=== PATIENT | male | born 1930 | race American Indian/Alaskan Native ===

== ENCOUNTER 2017-01-06 15:28 | Inpatient (IN) | payer MEDICARE, OTHER ==
--- NOTE | 2017-01-06 17:00 | C.PDOC ---
History Of Present Illness 86 year old male presents to the ED from his [facility] accompanied by his son with complaints of SOB and increasing generalized edema. As per son, patient was admitted to [facility] 2 and 1/2 weeks ago for a GI bleed and became more swollen. He notes the swelling improved a bit at the [facility] however the SOB worsened. Denies fever, vomiting, diarrhea, chest pain, or any other complaints at this time. Time Seen by Provider: 01/06/17 15:53 Chief Complaint (Nursing): Shortness Of Breath History Per: Patient, Family (Son) History/Exam Limitations: no limitations Onset/Duration Of Symptoms: Days Current Symptoms Are (Timing): Still Present Severity: Mild Associated Symptoms: denies: Fever, Chills, Chest Pain Past Medical History Reviewed: Historical Data, Nursing Documentation, Vital Signs Vital Signs: Last Vital Signs Temp 97.4 F L 01/07/17 09:08 Pulse 83 01/07/17 09:08 Resp 20 01/07/17 09:08 BP 100/59 L 01/07/17 09:23 Pulse Ox 100 01/07/17 00:00 - Medical History PMH: Anemia, Cardia Arrhythmia - [facility] Procedures COLONOSCOPY (11/04/00) DX ULTRASOUND NEC (04/19/99) ENDOSC POLYPECTOMY OF LG INTEST (11/02/98) ESOPHAGOGASTRODUODENOSCOPY [EGD] W/CLOSED BIOPSY (11/02/98) INJECT/INFUSE NEC (09/17/06) OTHER SPEECH THERAPY (05/08/03) PHYSICAL THERAPY NEC (05/08/03) RADIOACTIVE [place] IMPLANT (04/19/99) Family History: States: Unknown Family Hx - Social History Hx Alcohol Use: No Hx Substance Use: No - Immunization History Hx Influenza Vaccination: Yes Hx Pneumococcal Vaccination: Yes Review Of Systems Except As Marked, All Systems Reviewed And Found Negative. Constitutional: Positive for: Other (+Generalized edema). Negative for: Fever, Chills Cardiovascular: Negative for: Chest Pain, Palpitations Respiratory: Positive for: Shortness of Breath. Negative for: Cough Gastrointestinal: Negative for: Vomiting, Abdominal Pain Neurological: Negative for: Weakness, Numbness Physical Exam - Physical Exam Appears: Non-toxic, No Acute Distress Skin: Normal Color, Warm, Dry Head: Atraumatic, Normacephalic Eye(s): bilateral: Normal Inspection Oral Mucosa: Moist Neck: Supple Chest: Symmetrical, No Deformity Cardiovascular: Rhythm Regular, No Murmur Respiratory: Decreased Breath Sounds, No Accessory Muscle Use, Rales (+Rales mostly to the bases), No Rhonchi Gastrointestinal/Abdominal: Soft, No Tenderness, No Guarding, No Rebound, Other (+Edema) Extremity: Normal ROM, Pedal Edema (3+ pedal edema), No Deformity Neurological/Psych: Oriented x3, Normal Speech, Normal Cognition ED Course And Treatment - Laboratory Results Result Diagrams: 01/07/17 07:45 01/07/17 06:10 ECG: Interpreted By Me, Viewed By Me ECG Rhythm: Atrial Fibrillation, R BBB Rate From EC O2 Sat by Pulse Oximetry: 100 Pulse Ox Interpretation: Normal - Radiology CXR: Interpreted by Me, Viewed By Me CXR Interpretation: Yes: Cardiomegaly, Other (+Right sided pleural effusion) Progress Note: CXR, EKG, Blood work, and Urinalysis ordered and reviewed. patient treated with Lasix. Case discussed with Dr. Lucas who agreed with plan and admission. Medical Decision Making Medical Decision Making: Pt stable in the ED BP ~ 100 which is apparently his usual He continue warm and dry with usual mentation Pt had difficult vasc assess with hx of multiple neck lines. Some blood obtained and IV lasix given Pt declines any blood or blood products. We also discussed DNR/DNI status both pt and son confirmed the pt wishes, DNR/ DNI order placed Case discussed with Dr Lucas, plan admission Disposition - Disposition Disposition: HOSPITALIZED Disposition Time: 16:00 Condition: SERIOUS - Clinical Impression Clinical Impression: Congestive heart failure, NYHA class 4, Generalized edema, Dyspnea on exertion - Scribe Statement The provider has reviewed the documentation as recorded by the Scribe Ramos Monge. Provider Attestation: All medical record entries made by the Scribe were at my direction and personally dictated by me. I have reviewed the chart and agree that the record accurately reflects my personal performance of the history, physical exam, medical decision making, and the department course for this patient. I have also personally directed, reviewed, and agree with the discharge instructions and disposition.
[2017-01-06 17:42] LABS: CHLORIDE 103 mmol/L (98-107); POTASSIUM 4.6 mmol/L (3.6-5.2); SODIUM 136 mmol/L (132-148)
[2017-01-06 17:44] LABS: GFR AFRICAN-AMERICAN > 60
[2017-01-06 17:45] LABS: ALB/GLOB RATIO 0.4 (1.0-2.1); ALKALINE PHOSPHATASE 363 U/L (38-126); ALT/SGPT 53 U/L (21-72); AST/SGOT 67 U/L (17-59); BILIRUBIN,TOTAL 0.4 mg/dL (0.2-1.3); BLOOD UREA NITROGEN 24 mg/dL (9-20); CARBON DIOXIDE 27 mmol/L (22-30); GLUCOSE,RANDOM 113 mg/dL (75-110); TOTAL PROTEIN 6.9 g/dL (6.3-8.3)
[2017-01-06 17:46] LABS: CALCIUM 7.3 mg/dl (8.6-10.4)
[2017-01-06 17:50] LABS: RBC URINE 2 /hpf (0-3); URINE BACTERIA OCC (<OCC); URINE BILIRUBIN NEGATIVE (NEGATIVE); URINE BLOOD NEGATIVE (NEGATIVE); URINE COLOR Yellow (YELLOW); URINE GLUCOSE (UA) NORMAL (Normal); URINE KETONE NEGATIVE (NEGATIVE); URINE LEUKOCYTE ESTERASE TRACE Leu/uL (Negative); URINE PROTEIN NEGATIVE (NEGATIVE); URINE URIC ACID CRYSTALS OCC /hpf (<OCC); URINE UROBILINOGEN NORMAL mg/dL (0.2-1.0); WBC URINE 5 /hpf (0-5)
[2017-01-06 19:08] LABS: BASO % 0.7 % (0.0-2.0); EOS % 0.4 % (0.0-4.0); HEMATOCRIT 23.5 % (35.0-51.0); LYMPH # 0.4 K/uL (1.0-4.3); LYMPH % 15.5 % (20.0-40.0); MEAN CELL VOLUME 102.1 fL (80.0-94.0); MEAN CORPUSCULAR HEMOGLOBIN 31.2 pg (27.0-31.0); MEAN CORPUSCULAR HGB CONC 30.6 g/dL (33.0-37.0); MONO # 0.4 K/uL (0.0-0.8); MONO % 16.6 % (0.0-10.0); RED CELL DISTRIBUTION WIDTH 17.3 % (11.5-14.5); WHITE BLOOD COUNT 2.5 K/uL (4.8-10.8)
[2017-01-06] MEDS ORDERED: Magnesium Hydroxide Susp 30 ml UD PO PRN (23:27)
[2017-01-06] MEDS ORDERED: Albuterol-Ipratrop 3 mg / 0.5 (3 ml) UD IH PRN (23:27)
[2017-01-06] MEDS ORDERED: EPOETIN ALFA 10,000 UNIT/ML ML SC ONE (23:45)
[2017-01-07 07:39] LABS: FOLATE > 20.0 ng/mL
[2017-01-07 07:50] LABS: BASO % 0.8 % (0.0-2.0); EOS % 0.8 % (0.0-4.0); HEMATOCRIT 19.6 % (35.0-51.0); LYMPH # 0.3 K/uL (1.0-4.3); LYMPH % 15.7 % (20.0-40.0); MEAN CELL VOLUME 103.6 fL (80.0-94.0); MEAN CORPUSCULAR HEMOGLOBIN 32.4 pg (27.0-31.0); MEAN CORPUSCULAR HGB CONC 31.3 g/dL (33.0-37.0); MEAN PLATELET VOLUME 9.5 fL (7.2-11.7); MONO # 0.3 K/uL (0.0-0.8); MONO % 15.6 % (0.0-10.0); NRBC % 0.1 % (0.0-2.0); RED CELL DISTRIBUTION WIDTH 17.1 % (11.5-14.5); RETIC% 1.6 % (0.5-1.5); WHITE BLOOD COUNT 2.2 K/uL (4.8-10.8)
[2017-01-07] MEDS ORDERED: Epoetin Alfa Dialysis 40000 UNIT/ml Inj SC SCH (08:30)
--- NOTE | 2017-01-07 08:46 | RAD ---
PROCEDURE: CHEST RADIOGRAPH, 1 VIEW HISTORY: Shortness of breath COMPARISON: None available. FINDINGS: LUNGS: Moderate to large right and small to moderate left pleural effusion. Prominent confluent airspace opacifications throughout the right mid to lower lung zone as well as the left lower lung zone. Scattered confluent airspace opacities throughout both lungs. Upper lobe granulomatous changes. PLEURA: As above. CARDIOVASCULAR: Cardiomegaly. OSSEOUS STRUCTURES: Degenerative changes in the spine and shoulders. VISUALIZED UPPER ABDOMEN: Normal. OTHER FINDINGS: None. IMPRESSION: Moderate to large right and small to moderate left pleural effusion. Prominent confluent airspace opacifications throughout the right mid to lower lung zone as well as the left lower lung zone. Scattered confluent airspace opacities throughout both lungs. Upper lobe granulomatous changes. Cardiomegaly.
[2017-01-07] MEDS: Ferric Sodium Gluconat Complex 62.5 mg/5 ml Vial IVPB SCH (09:23)
[2017-01-07] MEDS: Pyridoxine 100 mg Tab PO SCH (09:41)
[2017-01-07] MEDS ORDERED: Pantoprazole 40 mg EC Tab PO SCH (10:00)
[2017-01-07] MEDS ORDERED: Albumin Human 25% (12.5 gm/50 ml) IV SCH (10:00)
[2017-01-07 10:17] LABS: CHLORIDE 106 mmol/L (98-107); SODIUM 138 mmol/L (132-148)
[2017-01-07 10:19] LABS: BILIRUBIN,TOTAL 0.3 mg/dL (0.2-1.3); GFR AFRICAN-AMERICAN > 60
[2017-01-07 10:20] LABS: ALB/GLOB RATIO 0.4 (1.0-2.1); ALKALINE PHOSPHATASE 163 U/L (38-126); ALT/SGPT 36 U/L (21-72); AST/SGOT 46 U/L (17-59); BLOOD UREA NITROGEN 24 mg/dL (9-20); CARBON DIOXIDE 27 mmol/L (22-30); GLUCOSE,RANDOM 103 mg/dL (75-110); TOTAL PROTEIN 4.1 g/dL (6.3-8.3)
[2017-01-07 10:21] LABS: CALCIUM 6.7 mg/dl (8.6-10.4); POTASSIUM 4.5 mmol/L (3.6-5.2)
--- NOTE | 2017-01-07 10:27 | CP.PCM.PN ---
Subjective - Date & Time of Evaluation Date of Evaluation: 01/07/17 Time of Evaluation: 07:20 - Subjective Subjective: PGY2 Medicine Note - Dr. Lucas's service: Patient seen and examined at bedside this AM. Patient is an 86 year old Jehovah 's witness male with PMHx of anemia presenting from care home for SOB and generalized edema. Patient was at [facility] 2.5 weeks ago for GI bleed. Patient says edema improved while at care home, but SOB worsened. Patient says he is breathing better today. Patient refuses blood transfusion for muslim reasons. Objective - Vital Signs/Intake and Output Vital Signs (last 24 hours): Temp Pulse Resp BP Pulse Ox 97.4 F L 83 20 100/59 L 100 01/07/17 09:08 01/07/17 09:08 01/07/17 09:08 01/07/17 09:23 01/07/17 00:00 Intake and Output: 01/07/17 01/07/17 06:59 18:59 Intake Total 150 Output Total 700 Balance -550 - Medications Medications: Current Medications Acetaminophen (Tylenol 325mg Tab) 650 mg PO Q4H PRN PRN Reason: Pain, Mild (1-3) Albuterol/Ipratropium (Duoneb 3 Mg/0.5 Mg (3 Ml) Ud) 3 ml IH RQ6 PRN PRN Reason: Shortness of Breath Epoetin Leland (Procrit) 40,000 unit SC MOTH ALEXIA Ferric Sodium Gluconate Complex (Ferrlecit) 125 mg IVPB DAILY [facility] Stop: 01/15/17 10:01 Last Admin: 01/07/17 09:23 Dose: 125 mg Folic Acid (Folic Acid) 2 mg PO DAILY [facility] Last Admin: 01/07/17 09:23 Dose: 2 mg Furosemide (Lasix) 20 mg IVP BID [facility] Last Admin: 01/07/17 09:23 Dose: 20 mg Albumin Human (Albumin Human 25% (12.5 Gm/50 Ml)) 50 mls @ 50 mls/hr IV ONCE ONE Stop: 01/07/17 10:59 Lactulose (Enulose) 20 gm PO DAILY PRN PRN Reason: Constipation Magnesium Hydroxide (Milk Of Magnesia) 30 ml PO DAILY PRN PRN Reason: Constipation Pantoprazole Sodium (Protonix Ec Tab) 40 mg PO DAILY [facility] Last Admin: 01/07/17 09:23 Dose: 40 mg Pyridoxine HCl (Vitamin B6) 100 mg PO DAILY [facility] Last Admin: 01/07/17 09:41 Dose: 100 mg - Labs Labs: 01/07/17 07:45 - Constitutional Appears: Non-toxic, No Acute Distress, Chronically Ill - Head Exam Head Exam: NORMAL INSPECTION - Eye Exam Eye Exam: EOMI - ENT Exam ENT Exam: Mucous Membranes Moist - Respiratory Exam Respiratory Exam: Rales (b/l), NORMAL BREATHING PATTERN. absent: Accessory Muscle Use, Respiratory Distress - Cardiovascular Exam Cardiovascular Exam: REGULAR RHYTHM, JVD, +S1, +S2. absent: Rubs, Murmur - GI/Abdominal Exam GI & Abdominal Exam: Soft, Normal Bowel Sounds. absent: Distended, Firm, Tenderness - Extremities Exam Extremities Exam: Pedal Edema (2+ b/l legs, 2+ left arm) - Neurological Exam Neurological Exam: Alert, Oriented x3 - Psychiatric Exam Psychiatric exam: Normal Affect, Normal Mood - Skin Skin Exam: Pallor, Warm Assessment and Plan - Assessment and Plan (Free Text) Assessment: Pancytopenia Macrocytic anemia Hgb 6.1, WBC 2.2, Platelets 92 MCV 103.6 Patient refusing blood products for muslim reasons Heme/Onc consult - Dr. Marti - help appreciated B12 >1000, Folate >20 F/U ferritin, immunofixation, kappa/lambda, protein electrophoresis GI consult - Dr. Garcia - f/u recommendations Stool occult blood negative x1 F/U repeat stool occult blood Pleural Effusions CXR 01/06/17- large right pleural effusion, small left pleural effusion with scattered opacities Albumin IVPB daily x3 days Lasix 20mg IVP BID F/U ECHO Pulmonology consult - Dr. Amador - f/u recommendations Pneumonia CXR - see above Afebrile, WBC 2.2 with neutrophil count of 1.5 Avelox 400mg IVPB daily started 01/07/17 Atrial fibrillation EKG 01/06/17 - rate controlled AFib Cardio consult - Dr. Lerner - help appreciated No anticoagulation for now as Hgb and platelets are low F/U ECHO Transaminitis AST 67, ALT 53, ALP 363 F/U GGT GI consult - Dr. Garcia - f/u recommendations Prophylaxis Pepcid 20mg PO daily Stockings
--- NOTE | 2017-01-07 10:46 | CARD ---
APPROVED REPORT EKG Measurement Heart [id number] <Conclusion> Atrial fibrillation Right bundle branch block Abnormal ECG
[2017-01-07] MEDS: Moxifloxacin IV 400mg/250ml NS 250 ML IVPB SCH (11:40)
--- NOTE | 2017-01-07 12:46 | CP.PCM.CON ---
<Catalina Parson - Last Filed: 01/07/17 16:12> History of Present Illness - History of Present Illness History of Present Illness: Gastroenterology Fellow/PGY4 Consult Note 86 year old male with history of CHF, pulmonary hypertension, Afib previously on Coumadin since , recent admission to [facility] on 12/09 for hemorrhagic shock with coffee-ground emesis, treated with iron supplementation, Epogen, and Venofer due to refusal of blood transfusion as a [employer]ian worship beliefs. History obtained from patient with limited insight but oriented to person/place/time, son, and [facility] nursing facility staff. Transferred to [facility] on 12/17 with noted inpatient chart review showing H/H on 12/29 of 6. and MCV 108. Discharge note on file at [facility] shows no blood transfusion and iron replacements provided with discharge after two day stay. There is question of a diagnosed cecal mass that patient and son do not confirm being aware of in history. As well, patient reports undergoing EGD and colonoscopy and son reports EGD performed showing ulcer with bleeding leading to Coumadin being stopped on discharge. Nursing facility reports plan was to provide the patient with Epogen 20,000units yesterday but patient refused and requested hospital admission. At present, patient admits to weakness, shortness of breath with movement. Denies abdominal pain, distension, melena, hematochezia, hematemesis, chest pain, nausea, vomiting, or diarrhea. Admits to chronic diffuse body swelling with history of CHF. At present, attempting bowel movement with yellow-brown soft stool noted. On record review prior colonoscopy 10/2000 with likely polypectomy, endorsed by patient to be normal. Family-denies colon cancer, stomach cancer, paternal aunt unknown cancer, Diabetes throught family Social-quit tobacco and alcohol use "many years ago", unable to quantify, denies illicit drug use Surgery-hernia repair Review of Systems - Review of Systems Review of Systems: A 12-point review of systems negative except for as above Past Patient History - Infectious Disease Hx of Infectious Diseases: None - Past Medical History & Family History Past Medical History?: Yes - Past Social History Smoking Status: Former Smoker - CARDIAC Hx Cardiac Disorders: Yes Hx Atrial Fibrillation: Yes Hx Cardia Arrhythmia: Yes Hx Congestive Heart Failure: Yes Hx Hypertension: Yes Hx Peripheral Edema: Yes - PULMONARY Hx Respiratory Disorders: Yes Other/Comment: PULMONARY HYPERTENSION - NEUROLOGICAL Hx Neurological Disorder: Yes HX Cerebrovascular Accident: Yes - HEENT Hx HEENT Problems: Yes Hx Deafness: Yes (hearing aid) - RENAL Hx Chronic Kidney Disease: No - ENDOCRINE/METABOLIC Hx Diabetes Mellitus Type 2: Yes - HEMATOLOGICAL/ONCOLOGICAL Hx Blood Disorders: Yes Hx Anemia: Yes - MUSCULOSKELETAL/RHEUMATOLOGICAL Hx Musculoskeletal Disorders: Yes Hx Falls: No Hx Unsteady Gait: Yes - GASTROINTESTINAL Hx Gastrointestinal Disorders: Yes Other/Comment: GI BLEED - GENITOURINARY/GYNECOLOGICAL Hx Genitourinary Disorders: Yes Hx Incontinence: Yes - PSYCHIATRIC Hx Psychophysiologic Disorder: No Hx Substance Use: No - SURGICAL HISTORY Hx Surgeries: Yes Hx Herniorrhaphy: Yes (left) - ANESTHESIA Hx Anesthesia: Yes Hx Anesthesia Reactions: No Hx Malignant Hyperthermia: No Has any member of the family had a problem w/ anesthesia?: No Meds Allergies/Adverse Reactions: Allergies Allergy/AdvReac Type Severity Reaction Status Date / Time No Known Allergies Allergy Verified 01/06/17 16:09 - Medications Medications: Current Medications Acetaminophen (Tylenol 325mg Tab) 650 mg PO Q4H PRN PRN Reason: Pain, Mild (1-3) Albuterol/Ipratropium (Duoneb 3 Mg/0.5 Mg (3 Ml) Ud) 3 ml IH RQ6 PRN PRN Reason: Shortness of Breath Famotidine (Pepcid) 20 mg PO DAILY [facility] Ferric Sodium Gluconate Complex (Ferrlecit) 125 mg IVPB DAILY [facility] Stop: 01/15/17 10:01 Last Admin: 01/07/17 09:23 Dose: 125 mg Folic Acid (Folic Acid) 2 mg PO DAILY [facility] Last Admin: 01/07/17 09:23 Dose: 2 mg Furosemide (Lasix) 20 mg IVP BID [facility] Last Admin: 01/07/17 09:23 Dose: 20 mg Moxifloxacin HCl (Avelox Iv 400mg/250ml Ns) 250 mls @ 167 mls/hr IVPB Q24H [facility] Last Admin: 01/07/17 11:40 Dose: 167 mls/hr Lactulose (Enulose) 20 gm PO DAILY PRN PRN Reason: Constipation Magnesium Hydroxide (Milk Of Magnesia) 30 ml PO DAILY PRN PRN Reason: Constipation Pyridoxine HCl (Vitamin B6) 100 mg PO DAILY [facility] Last Admin: 01/07/17 09:41 Dose: 100 mg Physical Exam - Constitutional Appears: Non-toxic, No Acute Distress, Chronically Ill - Head Exam Head Exam: ATRAUMATIC, NORMOCEPHALIC - Eye Exam Eye Exam: EOMI, Normal appearance, PERRL Pupil Exam: PERRL. absent: Miosis, Mydriatic - ENT Exam ENT Exam: Mucous Membranes Moist, Normal Oropharynx Additional comments: poor dentition - Neck Exam Neck exam: Positive for: Full Rom, Normal Inspection - Respiratory Exam Respiratory Exam: Clear to Auscultation Bilateral. absent: Rales, Rhonchi, Wheezes, Stridor - Cardiovascular Exam Cardiovascular Exam: Irregular Rhythm, JVD, +S1, +S2. absent: Gallop, Rubs - GI/Abdominal Exam GI & Abdominal Exam: Normal Bowel Sounds, Soft, Tenderness. absent: Distended, Firm, Guarding, Organomegaly, Rebound, Rigid - Rectal Exam Rectal Exam: absent: Black Stool, Bloody Stool, Fecal Impaction Additional comments: soft yellow-brown stool - Exam Exam: Scrotal Swelling - Extremities Exam Extremities exam: Positive for: normal inspection Additional comments: 3+ B/L LE pitting edema and chronic lymphedema, B/L UE chronic lymphedema - Neurological Exam Neurological exam: Alert, Oriented x3 - Psychiatric Exam Psychiatric exam: Normal Affect, Normal Mood - Skin Skin Exam: Dry, Intact, Normal Color, Warm Additional comments: sacral pressure ulcer Results - Vital Signs Recent Vital Signs: Last Vital Signs Temp 97.4 F L 01/07/17 09:08 Pulse 83 01/07/17 09:08 Resp 20 01/07/17 09:08 BP 100/59 L 01/07/17 09:23 Pulse Ox 100 01/07/17 00:00 - Labs Result Diagrams: 01/07/17 07:45 01/07/17 06:10 Labs: Laboratory Results - last 24 hr 01/06/17 01/07/17 01/07/17 19:05 01:13 06:10 WBC 2.5 L RBC 2.30 L Hgb 7.2 L Hct 23.5 L MCV 102.1 H MCH 31.2 H MCHC 30.6 L RDW 17.3 H Plt Count 115 L MPV 8.0 Neut % (Auto) 66.8 Lymph % (Auto) 15.5 L Den[place] % (Auto) 16.6 H Eos % (Auto) 0.4 Baso % (Auto) 0.7 Neut # 1.7 L Lymph # 0.4 L Denali # 0.4 Eos # 0.0 Baso # 0.0 Differential Comment Retic Count Sodium 138 Potassium 4.5 Chloride 106 Carbon Dioxide 27 Anion Gap 10 BUN 24 H Creatinine 0.8 Est GFR ( Amer) > 60 Est GFR (Non-Af Amer) > 60 Random Glucose 103 Calcium 6.7 L Ferritin 749.0 Total Bilirubin 0.3 AST 46 ALT 36 Alkaline Phosphatase 163 H D Total Protein 4.1 L Albumin 1.2 L D Globulin 2.8 Albumin/Globulin Ratio 0.4 L Vitamin B12 > 1000 H Folate > 20.0 Stool Occult Blood Negative 01/07/17 07:45 WBC 2.2 L RBC 1.89 L Hgb 6.1 L* Hct 19.6 L MCV 103.6 H MCH 32.4 H MCHC 31.3 L RDW 17.1 H Plt Count 92 L D MPV 9.5 Neut % (Auto) 67.1 Lymph % (Auto) 15.7 L [place] % (Auto) 15.6 H Eos % (Auto) 0.8 Baso % (Auto) 0.8 Neut # 1.5 L Lymph # 0.3 L Denali # 0.3 Eos # 0.0 Baso # 0.0 Differential Comment Retic Count 1.6 H Sodium Potassium Chloride Carbon Dioxide Anion Gap BUN Creatinine Est GFR ( Amer) Est GFR (Non-Af Amer) Random Glucose Calcium Ferritin Total Bilirubin AST ALT Alkaline Phosphatase Total Protein Albumin Globulin Albumin/Globulin Ratio Vitamin B12 Folate Stool Occult Blood Assessment & Plan - Assessment and Plan (Free Text) Assessment: 86 year old male with history of CHF, pulmonary hypertension, Afib previously on Coumadin since , recent admission to [facility] on 12/09 for hemorrhagic shock with coffee-ground emesis, treated with iron supplementation, Epogen, and Venofer due to refusal of blood transfusion as a [employer]ian, transferred to [facility] on 12/17. Presenting with weakness and shortness of breath. Active treatment of symptomatic, acute on chronic anemia treated with medical management. On record review prior colonoscopy 10/2000 with likely polypectomy, endorsed by patient to be normal. Plan: >discussed with patient and son refusal of blood transfusion as [employer]ian -son-Jori Manzano [phone] >monitor H/H >continue PPI >iron transfusion, Procrit >Hematology managing- follow up recommendations >obtain records from [facility] -confirm prior endoscopic evaluation- EGD /colonoscopy and/or CT A/P with recent GI Bleed >consider CT A/P if not recently performed >recent outpatient Duplex LE -negative for DVT 12/30/16 on nursing record review >extensive counselling provided to patient and son with verbalized understanding of acute anemia and risks vs benefit of blood transfusion >patient and family express understanding. No blood transfusions with worship belief being a [employer]ian <Martha Martinez - Last Filed: 01/07/17 17:14> Meds - Medications Medications: Current Medications Acetaminophen (Tylenol 325mg Tab) 650 mg PO Q4H PRN PRN Reason: Pain, Mild (1-3) Albuterol/Ipratropium (Duoneb 3 Mg/0.5 Mg (3 Ml) Ud) 3 ml IH RQ6 PRN PRN Reason: Shortness of Breath Famotidine (Pepcid) 20 mg PO DAILY [facility] Ferric Sodium Gluconate Complex (Ferrlecit) 125 mg IVPB DAILY [facility] Stop: 01/15/17 10:01 Last Admin: 01/07/17 09:23 Dose: 125 mg Folic Acid (Folic Acid) 2 mg PO DAILY [facility] Last Admin: 01/07/17 09:23 Dose: 2 mg Furosemide (Lasix) 20 mg IVP BID [facility] Last Admin: 01/07/17 09:23 Dose: 20 mg Moxifloxacin HCl (Avelox Iv 400mg/250ml Ns) 250 mls @ 167 mls/hr IVPB Q24H [facility] Last Admin: 01/07/17 11:40 Dose: 167 mls/hr Lactulose (Enulose) 20 gm PO DAILY PRN PRN Reason: Constipation Magnesium Hydroxide (Milk Of Magnesia) 30 ml PO DAILY PRN PRN Reason: Constipation Pyridoxine HCl (Vitamin B6) 100 mg PO DAILY [facility] Last Admin: 01/07/17 09:41 Dose: 100 mg Results - Vital Signs Recent Vital Signs: Last Vital Signs Temp 97.3 F L 01/07/17 16:47 Pulse 90 01/07/17 16:47 Resp 20 01/07/17 16:47 BP 100/61 01/07/17 16:47 Pulse Ox 100 01/07/17 16:47 - Labs Result Diagrams: 01/07/17 07:45 01/07/17 06:10 Labs: Laboratory Results - last 24 hr 01/06/17 01/07/17 01/07/17 19:05 01:13 06:10 WBC 2.5 L RBC 2.30 L Hgb 7.2 L Hct 23.5 L MCV 102.1 H MCH 31.2 H MCHC 30.6 L RDW 17.3 H Plt Count 115 L MPV 8.0 Neut % (Auto) 66.8 Lymph % (Auto) 15.5 L Denali % (Auto) 16.6 H Eos % (Auto) 0.4 Baso % (Auto) 0.7 Neut # 1.7 L Lymph # 0.4 L Denali # 0.4 Eos # 0.0 Baso # 0.0 Differential Comment Retic Count Sodium 138 Potassium 4.5 Chloride 106 Carbon Dioxide 27 Anion Gap 10 BUN 24 H Creatinine 0.8 Est GFR ( Amer) > 60 Est GFR (Non-Af Amer) > 60 Random Glucose 103 Calcium 6.7 L Ferritin 749.0 Total Bilirubin 0.3 AST 46 ALT 36 Alkaline Phosphatase 163 H D Total Protein 4.1 L Albumin 1.2 L D Globulin 2.8 Albumin/Globulin Ratio 0.4 L Vitamin B12 > 1000 H Folate > 20.0 Stool Occult Blood Negative 01/07/17 07:45 WBC 2.2 L RBC 1.89 L Hgb 6.1 L* Hct 19.6 L MCV 103.6 H MCH 32.4 H MCHC 31.3 L RDW 17.1 H Plt Count 92 L D MPV 9.5 Neut % (Auto) 67.1 Lymph % (Auto) 15.7 L Denali % (Auto) 15.6 H Eos % (Auto) 0.8 Baso % (Auto) 0.8 Neut # 1.5 L Lymph # 0.3 L Denali # 0.3 Eos # 0.0 Baso # 0.0 Differential Comment Retic Count 1.6 H Sodium Potassium Chloride Carbon Dioxide Anion Gap BUN Creatinine Est GFR ( Amer) Est GFR (Non-Af Amer) Random Glucose Calcium Ferritin Total Bilirubin AST ALT Alkaline Phosphatase Total Protein Albumin Globulin Albumin/Globulin Ratio Vitamin B12 Folate Stool Occult Blood Attending/Attestation - Attestation I have personally seen and examined this patient.: Yes I have fully participated in the care of the patient.: Yes I have reviewed all pertinent clinical information: Yes Notes (Text): Patient seen and examined. Agree with note as documented above with the following additions/exceptions. This is an 86 year old male with h/o atrial fibrillation previously on coumadin, CHF, chronic anemia, recent hospitalization at [facility] for ?GI bleeding/coffee ground emesis who presents to hospital with anasarca, weakness and dyspnea. He is found to have pancytopenia with severe macrocytic anemia (Hb 6) without overt or occult GI blood loss. He has elevated BP and elevated AST/ALK p (?due to hepatic congestion). Albumin 1.2. Obtain GGT and abdominal sonogram. Monitor LFTs. Check coags. Monitor H /H--he is [employer]ian so refusing transfusion. Follow up hematology recommendations re: pancytopenia. Check hepatitis panel. Obtain previous records from [facility], prior endoscopy history. 01/07/17 17:09
--- NOTE | 2017-01-07 18:57 | US ---
HISTORY: abnormal LFTs COMPARISON: None. TECHNIQUE: Sonographic evaluation of the abdomen. FINDINGS: LIVER: Measures 14.6 cm. There is diffuse increased echogenicity of the liver parenchyma. No mass. No intrahepatic bile duct dilatation. GALLBLADDER: Mild gallbladder wall thickening is related to systemic disease. No gallstones. COMMON BILE DUCT: Measures 5.0 mm. No stones. No dilatation. PANCREAS: Unremarkable as visualized. No mass. No ductal dilatation. RIGHT KIDNEY: Measures 11.2cm. Normal echogenicity. No calculus, mass, or hydronephrosis. LEFT KIDNEY: Measures 10.4cm. Normal echogenicity. No calculus, mass, or hydronephrosis. There is a 1.4 x 1.3 x 1.4 cm cyst in the interpolar region. SPLEEN: Normal in size and contour. No mass. AORTA: No aneurysmal dilatation. IVC: Unremarkable. OTHER FINDINGS: There is moderate abdominal ascites. IMPRESSION: Hepatic steatosis. Moderate abdominal ascites.
--- NOTE | 2017-01-07 22:44 | CP.PCM.CON ---
History of Present Illness - History of Present Illness History of Present Illness: 86 year old Jehovah witness male with a history of CHF, afib on coumadin complicated by GI bleeding recently treated at [facility], found to be pancytopenic. The patient does not recall further details and has instructed my to reach out to his son. I have placed a phone call out to his son but have not had a call back. The patient is currently receiving iron, b12, folate, and procrit supplementation to raise his blood count. He has deferred blood transfusion. Past medical, surgical, family, social history cannot be obtained. Allergies: Per documentation NKA Review of systems cannot be obtained. Past Patient History - Infectious Disease Hx of Infectious Diseases: None - Past Medical History & Family History Past Medical History?: Yes - Past Social History Smoking Status: Former Smoker - CARDIAC Hx Cardiac Disorders: Yes Hx Atrial Fibrillation: Yes Hx Cardia Arrhythmia: Yes Hx Congestive Heart Failure: Yes Hx Hypertension: Yes Hx Peripheral Edema: Yes - PULMONARY Hx Respiratory Disorders: Yes Other/Comment: PULMONARY HYPERTENSION - NEUROLOGICAL Hx Neurological Disorder: Yes HX Cerebrovascular Accident: Yes - HEENT Hx HEENT Problems: Yes Hx Deafness: Yes (hearing aid) - RENAL Hx Chronic Kidney Disease: No - ENDOCRINE/METABOLIC Hx Diabetes Mellitus Type 2: Yes - HEMATOLOGICAL/ONCOLOGICAL Hx Blood Disorders: Yes Hx Anemia: Yes - MUSCULOSKELETAL/RHEUMATOLOGICAL Hx Musculoskeletal Disorders: Yes Hx Falls: No Hx Unsteady Gait: Yes - GASTROINTESTINAL Hx Gastrointestinal Disorders: Yes Other/Comment: GI BLEED - GENITOURINARY/GYNECOLOGICAL Hx Genitourinary Disorders: Yes Hx Incontinence: Yes - PSYCHIATRIC Hx Psychophysiologic Disorder: No Hx Substance Use: No - SURGICAL HISTORY Hx Surgeries: Yes Hx Herniorrhaphy: Yes (left) - ANESTHESIA Hx Anesthesia: Yes Hx Anesthesia Reactions: No Hx Malignant Hyperthermia: No Has any member of the family had a problem w/ anesthesia?: No Meds Allergies/Adverse Reactions: Allergies Allergy/AdvReac Type Severity Reaction Status Date / Time No Known Allergies Allergy Verified 01/06/17 16:09 - Medications Medications: Current Medications Acetaminophen (Tylenol 325mg Tab) 650 mg PO Q4H PRN PRN Reason: Pain, Mild (1-3) Albuterol/Ipratropium (Duoneb 3 Mg/0.5 Mg (3 Ml) Ud) 3 ml IH RQ6 PRN PRN Reason: Shortness of Breath Famotidine (Pepcid) 20 mg PO DAILY [facility] Ferric Sodium Gluconate Complex (Ferrlecit) 125 mg IVPB DAILY [facility] Stop: 01/15/17 10:01 Last Admin: 01/07/17 09:23 Dose: 125 mg Folic Acid (Folic Acid) 2 mg PO DAILY [facility] Last Admin: 01/07/17 09:23 Dose: 2 mg Furosemide (Lasix) 20 mg IVP BID [facility] Last Admin: 01/07/17 20:01 Dose: 20 mg Moxifloxacin HCl (Avelox Iv 400mg/250ml Ns) 250 mls @ 167 mls/hr IVPB Q24H [facility] Last Admin: 01/07/17 11:40 Dose: 167 mls/hr Lactulose (Enulose) 20 gm PO DAILY PRN PRN Reason: Constipation Magnesium Hydroxide (Milk Of Magnesia) 30 ml PO DAILY PRN PRN Reason: Constipation Pyridoxine HCl (Vitamin B6) 100 mg PO DAILY [facility] Last Admin: 01/07/17 09:41 Dose: 100 mg Physical Exam - Head Exam Head Exam: ATRAUMATIC - Eye Exam Eye Exam: Normal appearance - ENT Exam ENT Exam: Mucous Membranes Dry - Respiratory Exam Respiratory Exam: Decreased Breath Sounds - Cardiovascular Exam Cardiovascular Exam: +S1, +S2 - GI/Abdominal Exam GI & Abdominal Exam: Normal Bowel Sounds - Extremities Exam Extremities exam: Positive for: pedal edema - Neurological Exam Neurological exam: Altered - Psychiatric Exam Psychiatric exam: Flat Affect, Normal Affect - Skin Skin Exam: Warm Results - Vital Signs Recent Vital Signs: Last Vital Signs Temp 97.4 F L 01/07/17 19:54 Pulse 89 01/07/17 19:54 Resp 18 01/07/17 19:54 BP 100/62 01/07/17 20:01 Pulse Ox 95 01/07/17 19:54 - Labs Result Diagrams: 01/07/17 07:45 01/07/17 06:10 Labs: Laboratory Results - last 24 hr 01/07/17 01/07/17 01/07/17 01:13 06:10 07:45 WBC 2.2 L RBC 1.89 L Hgb 6.1 L* Hct 19.6 L MCV 103.6 H MCH 32.4 H MCHC 31.3 L RDW 17.1 H Plt Count 92 L D MPV 9.5 Neut % (Auto) 67.1 Lymph % (Auto) 15.7 L [place] % (Auto) 15.6 H Eos % (Auto) 0.8 Baso % (Auto) 0.8 Neut # 1.5 L Lymph # 0.3 L [place] # 0.3 Eos # 0.0 Baso # 0.0 Retic Count 1.6 H Sodium 138 Potassium 4.5 Chloride 106 Carbon Dioxide 27 Anion Gap 10 BUN 24 H Creatinine 0.8 Est GFR ( Amer) > 60 Est GFR (Non-Af Amer) > 60 Random Glucose 103 Calcium 6.7 L Ferritin 749.0 Total Bilirubin 0.3 AST 46 ALT 36 Alkaline Phosphatase 163 H D Total Protein 4.1 L Albumin 1.2 L D Globulin 2.8 Albumin/Globulin Ratio 0.4 L Vitamin B12 > 1000 H Folate > 20.0 Stool Occult Blood Negative Hepatitis A IgM Ab Negative Hep Bs Antigen Negative Hep B Core IgM Ab Negative Hepatitis C Antibody Negative Assessment & Plan (1) Pancytopenia Assessment and Plan: recommend bone marrow biopsy, discussed with pt but he has deferred to his son I have attempted to call his son but have had no answer, will reattempt in AM Will start iron, b12, folate and Procrit to raise hemoglobin as pt is a jehovahs witness and has deferred PRBC transfusion Thank you for this interesting consult. Status: Acute (2) Elevated serum globulin level Assessment and Plan: will rule out monoclonal protein Thank you for this interesting consult. Status: Acute
--- NOTE | 2017-01-07 23:02 | CP.PCM.CON ---
History of Present Illness - History of Present Illness History of Present Illness: Patient seen and evaluated Dyspnea Amemia and A Fib No anticoagulation Patient DNR/DNI Past Patient History - Infectious Disease Hx of Infectious Diseases: None - Past Medical History & Family History Past Medical History?: Yes - Past Social History Smoking Status: Former Smoker - CARDIAC Hx Cardiac Disorders: Yes Hx Atrial Fibrillation: Yes Hx Cardia Arrhythmia: Yes Hx Congestive Heart Failure: Yes Hx Hypertension: Yes Hx Peripheral Edema: Yes - PULMONARY Hx Respiratory Disorders: Yes Other/Comment: PULMONARY HYPERTENSION - NEUROLOGICAL Hx Neurological Disorder: Yes HX Cerebrovascular Accident: Yes - HEENT Hx HEENT Problems: Yes Hx Deafness: Yes (hearing aid) - RENAL Hx Chronic Kidney Disease: No - ENDOCRINE/METABOLIC Hx Diabetes Mellitus Type 2: Yes - HEMATOLOGICAL/ONCOLOGICAL Hx Blood Disorders: Yes Hx Anemia: Yes - MUSCULOSKELETAL/RHEUMATOLOGICAL Hx Musculoskeletal Disorders: Yes Hx Falls: No Hx Unsteady Gait: Yes - GASTROINTESTINAL Hx Gastrointestinal Disorders: Yes Other/Comment: GI BLEED - GENITOURINARY/GYNECOLOGICAL Hx Genitourinary Disorders: Yes Hx Incontinence: Yes - PSYCHIATRIC Hx Psychophysiologic Disorder: No Hx Substance Use: No - SURGICAL HISTORY Hx Surgeries: Yes Hx Herniorrhaphy: Yes (left) - ANESTHESIA Hx Anesthesia: Yes Hx Anesthesia Reactions: No Hx Malignant Hyperthermia: No Has any member of the family had a problem w/ anesthesia?: No Meds Allergies/Adverse Reactions: Allergies Allergy/AdvReac Type Severity Reaction Status Date / Time No Known Allergies Allergy Verified 01/06/17 16:09 - Medications Medications: Current Medications Acetaminophen (Tylenol 325mg Tab) 650 mg PO Q4H PRN PRN Reason: Pain, Mild (1-3) Albuterol/Ipratropium (Duoneb 3 Mg/0.5 Mg (3 Ml) Ud) 3 ml IH RQ6 PRN PRN Reason: Shortness of Breath Epoetin Leland (Procrit) 20,000 unit SC ONCE ONE Stop: 01/08/17 09:01 Famotidine (Pepcid) 20 mg PO DAILY [facility] Ferric Sodium Gluconate Complex (Ferrlecit) 125 mg IVPB DAILY [facility] Stop: 01/15/17 10:01 Last Admin: 01/07/17 09:23 Dose: 125 mg Folic Acid (Folic Acid) 2 mg PO DAILY [facility] Last Admin: 01/07/17 09:23 Dose: 2 mg Furosemide (Lasix) 20 mg IVP BID [facility] Last Admin: 01/07/17 20:01 Dose: 20 mg Moxifloxacin HCl (Avelox Iv 400mg/250ml Ns) 250 mls @ 167 mls/hr IVPB Q24H [facility] Last Admin: 01/07/17 11:40 Dose: 167 mls/hr Lactulose (Enulose) 20 gm PO DAILY PRN PRN Reason: Constipation Magnesium Hydroxide (Milk Of Magnesia) 30 ml PO DAILY PRN PRN Reason: Constipation Pyridoxine HCl (Vitamin B6) 100 mg PO DAILY [facility] Last Admin: 01/07/17 09:41 Dose: 100 mg Results - Vital Signs Recent Vital Signs: Last Vital Signs Temp 97.4 F L 01/07/17 19:54 Pulse 89 01/07/17 19:54 Resp 18 01/07/17 19:54 BP 100/62 01/07/17 20:01 Pulse Ox 95 01/07/17 19:54 - Labs Result Diagrams: 01/07/17 07:45 01/07/17 06:10 Labs: Laboratory Results - last 24 hr 01/07/17 01/07/17 01/07/17 01:13 06:10 07:45 WBC 2.2 L RBC 1.89 L Hgb 6.1 L* Hct 19.6 L MCV 103.6 H MCH 32.4 H MCHC 31.3 L RDW 17.1 H Plt Count 92 L D MPV 9.5 Neut % (Auto) 67.1 Lymph % (Auto) 15.7 L [place] % (Auto) 15.6 H Eos % (Auto) 0.8 Baso % (Auto) 0.8 Neut # 1.5 L Lymph # 0.3 L [place] # 0.3 Eos # 0.0 Baso # 0.0 Retic Count 1.6 H Sodium 138 Potassium 4.5 Chloride 106 Carbon Dioxide 27 Anion Gap 10 BUN 24 H Creatinine 0.8 Est GFR ( Amer) > 60 Est GFR (Non-Af Amer) > 60 Random Glucose 103 Calcium 6.7 L Ferritin 749.0 Total Bilirubin 0.3 AST 46 ALT 36 Alkaline Phosphatase 163 H D Total Protein 4.1 L Albumin 1.2 L D Globulin 2.8 Albumin/Globulin Ratio 0.4 L Vitamin B12 > 1000 H Folate > 20.0 Stool Occult Blood Negative Hepatitis A IgM Ab Negative Hep Bs Antigen Negative Hep B Core IgM Ab Negative Hepatitis C Antibody Negative
[2017-01-08 02:29] LABS: TOTAL PROTEIN, SERUM 6.4 g/dL (6.1-8.1)
[2017-01-08 06:24] LABS: BASO % 0.6 % (0.0-2.0); EOS % 0.6 % (0.0-4.0); HEMATOCRIT 18.8 % (35.0-51.0); LYMPH # 0.3 K/uL (1.0-4.3); LYMPH % 13.6 % (20.0-40.0); MEAN CELL VOLUME 102.3 fL (80.0-94.0); MEAN CORPUSCULAR HEMOGLOBIN 32.8 pg (27.0-31.0); MEAN CORPUSCULAR HGB CONC 32.1 g/dL (33.0-37.0); MEAN PLATELET VOLUME 9.2 fL (7.2-11.7); MONO # 0.4 K/uL (0.0-0.8); MONO % 15.9 % (0.0-10.0); NRBC % 0.3 % (0.0-2.0); RED CELL DISTRIBUTION WIDTH 16.9 % (11.5-14.5); WHITE BLOOD COUNT 2.4 K/uL (4.8-10.8)
[2017-01-08 06:42] LABS: INR 1.5
[2017-01-08 06:54] LABS: CHLORIDE 103 mmol/L (98-107); SODIUM 143 mmol/L (132-148)
[2017-01-08 06:56] LABS: BILIRUBIN,TOTAL 0.7 mg/dL (0.2-1.3); GFR AFRICAN-AMERICAN > 60
[2017-01-08 06:57] LABS: ALB/GLOB RATIO 0.5 (1.0-2.1); ALKALINE PHOSPHATASE 324 U/L (38-126); ALT/SGPT 50 U/L (21-72); AST/SGOT 52 U/L (17-59); BLOOD UREA NITROGEN 21 mg/dL (9-20); CALCIUM 7.1 mg/dl (8.6-10.4); CARBON DIOXIDE 32 mmol/L (22-30); GLUCOSE,RANDOM 97 mg/dL (75-110); TOTAL PROTEIN 6.4 g/dL (6.3-8.3)
--- NOTE | 2017-01-08 07:27 | HP ---
The patient is an 86-year-old male admitted to the hospital with chief complaint of weakness, fatigue , tiredness, swelling of extremity, severe anemia. The patient came to the ER, advised admission. The patient has a history of GI bleeding. Was admitted to ____ [facility] for [facility]hab. The patient is complaining of weakness, fatigue ____. The patient ____ in the past. PHYSICAL EXAMINATION: GENERAL: The patient is awake, appears to be chronically ill. VITAL SIGNS: Temperature 98, pulse 90. HEENT: Within normal limits. NECK: Supple. CHEST: Symmetrical. HEART: Regular. ABDOMEN: Soft. EXTREMITIES: 2+ edema. The patient suffers from gastrointestinal bleeding, anemia, ____, deconditioning, hypoalbuminemia. T he patient will be on bedrest, diuresis, iron, ____, Procrit. Mian Brennan MD cc: [id number] TT: 01/07/2017 10:32:40 co
[2017-01-08] MEDS ORDERED: Epoetin Alfa 20000 UNIT/ML Inj SC ONE ×2 (09:00→10:00)
--- NOTE | 2017-01-08 09:35 | CP.PCM.PN ---
Subjective - Date & Time of Evaluation Date of Evaluation: 01/08/17 Time of Evaluation: 09:15 - Subjective Subjective: Dr. Lucas service: Patient is seen and examined in room, patient reports coming to the hospital due to shorntess of breath, fatigue, a being very "swollen". He has not been to this hospital before. Per nursing staff the patient is Jevoah's witness and has denied blood transfusion. Objective - Vital Signs/Intake and Output Vital Signs (last 24 hours): Temp Pulse Resp BP Pulse Ox 97.4 F L 85 18 100/63 97 01/08/17 07:02 01/08/17 09:06 01/08/17 09:06 01/08/17 09:06 01/08/17 09:06 Intake and Output: 01/08/17 01/08/17 06:59 18:59 Intake Total 390 Output Total 1200 Balance -810 - Medications Medications: Current Medications Acetaminophen (Tylenol 325mg Tab) 650 mg PO Q4H PRN PRN Reason: Pain, Mild (1-3) Albuterol/Ipratropium (Duoneb 3 Mg/0.5 Mg (3 Ml) Ud) 3 ml IH RQ6 PRN PRN Reason: Shortness of Breath Famotidine (Pepcid) 20 mg PO DAILY [facility] Ferric Sodium Gluconate Complex (Ferrlecit) 125 mg IVPB DAILY [facility] Stop: 01/15/17 10:01 Last Admin: 01/07/17 09:23 Dose: 125 mg Folic Acid (Folic Acid) 2 mg PO DAILY [facility] Last Admin: 01/07/17 09:23 Dose: 2 mg Furosemide (Lasix) 20 mg IVP BID [facility] Last Admin: 01/07/17 20:01 Dose: 20 mg Moxifloxacin HCl (Avelox Iv 400mg/250ml Ns) 250 mls @ 167 mls/hr IVPB Q24H [facility] Last Admin: 01/07/17 11:40 Dose: 167 mls/hr Lactulose (Enulose) 20 gm PO DAILY PRN PRN Reason: Constipation Magnesium Hydroxide (Milk Of Magnesia) 30 ml PO DAILY PRN PRN Reason: Constipation Pyridoxine HCl (Vitamin B6) 100 mg PO DAILY [facility] Last Admin: 01/07/17 09:41 Dose: 100 mg - Labs Labs: 01/08/17 06:06 01/08/17 06:06 PT 16.7 SECONDS (9.7-12.2) H 01/08/17 06:06 INR 1.5 01/08/17 06:06 - Constitutional Appears: Non-toxic, No Acute Distress, Chronically Ill - Head Exam Head Exam: ATRAUMATIC, NORMAL INSPECTION, NORMOCEPHALIC - Eye Exam Eye Exam: Normal appearance Pupil Exam: NORMAL ACCOMODATION - Respiratory Exam Respiratory Exam: Clear to Ausculation Bilateral. absent: Rhonchi, Wheezes - Cardiovascular Exam Cardiovascular Exam: REGULAR RHYTHM, RRR, +S1, +S2. absent: Gallop, Rubs - GI/Abdominal Exam GI & Abdominal Exam: Soft, Normal Bowel Sounds. absent: Guarding, Tenderness - Extremities Exam Extremities Exam: Pedal Edema (plus 2 in both upper and lower extremities). absent: Normal Inspection - Neurological Exam Neurological Exam: Alert - Psychiatric Exam Psychiatric exam: Flat Affect - Skin Skin Exam: Pallor Assessment and Plan - Assessment and Plan (Free Text) Assessment: Pancytopenia 01/08: Patient denied blood tranfusions for anglican reasons, have given hims procrit IV, Have consulted pallative care, patient and his guardain having agreed to pallative care. Have cancelled futher test and will given comfort measures only. Will continue with IV medication for now. Have also consulted pallative care as well. Macrocytic anemia Hgb 6.1, WBC 2.2, Platelets 92 MCV 103.6 Patient refusing blood products for anglican reasons Heme/Onc consult - Dr. Marti - help appreciated B12 >1000, Folate >20 F/U ferritin, immunofixation, kappa/lambda, protein electrophoresis GI consult - Dr. Garcia - f/u recommendations Stool occult blood negative x1 F/U repeat stool occult blood Pleural Effusions CXR 01/06/17- large right pleural effusion, small left pleural effusion with scattered opacities Albumin IVPB daily x3 days Lasix 20mg IVP BID F/U ECHO Pulmonology consult - Dr. Amador - f/u recommendations Pneumonia CXR - see above Afebrile, WBC 2.2 with neutrophil count of 1.5 Avelox 400mg IVPB daily started 01/07/17 Atrial fibrillation EKG 01/06/17 - rate controlled AFib Cardio consult - Dr. Lerner - help appreciated No anticoagulation for now as Hgb and platelets are low F/U ECHO Transaminitis AST 67, ALT 53, ALP 363 F/U GGT GI consult - Dr. Garcia - f/u recommendations Prophylaxis Pepcid 20mg PO daily [place]
--- NOTE | 2017-01-08 10:05 | CP.PCM.CON ---
<EllynmarinKaylyn fernandes - Last Filed: 01/08/17 10:35> History of Present Illness - History of Present Illness History of Present Illness: EP Cardiology consult note for Dr Harvey. Reason for consult: [facility] Patient is an 86 y/o with PMH of CHF, pulm htn, afib ( was on Coumadin), anemia recent discharge from [facility] 2nd to gi bleeding, sent from longterm with worsening generalized body edema and shortness of breath. Cardiology is being consulted secondary to nonsustained v tach this AM. Patient's very poor historian, thus most of the history was obtained from the chart. Patient denies cp, admits to shortness of breath, and numbness in his legs. Review of Systems - Review of Systems All systems: reviewed and no additional remarkable complaints except Review of Systems: As mentioned in HPI. Past Patient History - Infectious Disease Hx of Infectious Diseases: None - Past Medical History & Family History Past Medical History?: Yes - Past Social History Smoking Status: Former Smoker - CARDIAC Hx Cardiac Disorders: Yes Hx Atrial Fibrillation: Yes Hx Cardia Arrhythmia: Yes Hx Congestive Heart Failure: Yes Hx Hypertension: Yes Hx Peripheral Edema: Yes - PULMONARY Hx Respiratory Disorders: Yes Other/Comment: PULMONARY HYPERTENSION - NEUROLOGICAL Hx Neurological Disorder: Yes HX Cerebrovascular Accident: Yes - HEENT Hx HEENT Problems: Yes Hx Deafness: Yes (hearing aid) - RENAL Hx Chronic Kidney Disease: No - ENDOCRINE/METABOLIC Hx Diabetes Mellitus Type 2: Yes - HEMATOLOGICAL/ONCOLOGICAL Hx Blood Disorders: Yes Hx Anemia: Yes - MUSCULOSKELETAL/RHEUMATOLOGICAL Hx Musculoskeletal Disorders: Yes Hx Falls: No Hx Unsteady Gait: Yes - GASTROINTESTINAL Hx Gastrointestinal Disorders: Yes Other/Comment: GI BLEED - GENITOURINARY/GYNECOLOGICAL Hx Genitourinary Disorders: Yes Hx Incontinence: Yes - PSYCHIATRIC Hx Psychophysiologic Disorder: No Hx Substance Use: No - SURGICAL HISTORY Hx Surgeries: Yes Hx Herniorrhaphy: Yes (left) - ANESTHESIA Hx Anesthesia: Yes Hx Anesthesia Reactions: No Hx Malignant Hyperthermia: No Has any member of the family had a problem w/ anesthesia?: No Meds Allergies/Adverse Reactions: Allergies Allergy/AdvReac Type Severity Reaction Status Date / Time No Known Allergies Allergy Verified 01/06/17 16:09 - Medications Medications: Current Medications Acetaminophen (Tylenol 325mg Tab) 650 mg PO Q4H PRN PRN Reason: Pain, Mild (1-3) Albuterol/Ipratropium (Duoneb 3 Mg/0.5 Mg (3 Ml) Ud) 3 ml IH RQ6 PRN PRN Reason: Shortness of Breath Famotidine (Pepcid) 20 mg PO DAILY [facility] Ferric Sodium Gluconate Complex (Ferrlecit) 125 mg IVPB DAILY [facility] Stop: 01/15/17 10:01 Last Admin: 01/07/17 09:23 Dose: 125 mg Folic Acid (Folic Acid) 2 mg PO DAILY [facility] Last Admin: 01/07/17 09:23 Dose: 2 mg Furosemide (Lasix) 20 mg IVP BID [facility] Last Admin: 01/07/17 20:01 Dose: 20 mg Moxifloxacin HCl (Avelox Iv 400mg/250ml Ns) 250 mls @ 167 mls/hr IVPB Q24H [facility] Last Admin: 01/07/17 11:40 Dose: 167 mls/hr Lactulose (Enulose) 20 gm PO DAILY PRN PRN Reason: Constipation Magnesium Hydroxide (Milk Of Magnesia) 30 ml PO DAILY PRN PRN Reason: Constipation Pyridoxine HCl (Vitamin B6) 100 mg PO DAILY [facility] Last Admin: 01/07/17 09:41 Dose: 100 mg Physical Exam - Constitutional Appears: No Acute Distress, Chronically Ill Additional comments: Obese, anasarca. - Head Exam Head Exam: ATRAUMATIC, NORMAL INSPECTION - Eye Exam Eye Exam: Normal appearance - ENT Exam ENT Exam: Mucous Membranes Moist - Respiratory Exam Respiratory Exam: Rhonchi (at the bases), NORMAL BREATHING PATTERN. absent: Rales, Wheezes, Respiratory Distress - Cardiovascular Exam Cardiovascular Exam: Irregular Rhythm, +S1, +S2 - GI/Abdominal Exam GI & Abdominal Exam: Distended (obese abdomen. ), Normal Bowel Sounds, Soft - Extremities Exam Extremities exam: Positive for: pedal edema (+4) - Neurological Exam Additional comments: Awake, slurred speech. - Psychiatric Exam Psychiatric exam: Normal Affect, Normal Mood - Skin Skin Exam: Warm Additional comments: + generalized edema. Results - Vital Signs Recent Vital Signs: Last Vital Signs Temp 97.4 F L 01/08/17 07:02 Pulse 85 01/08/17 09:06 Resp 18 01/08/17 09:06 BP 100/63 01/08/17 09:06 Pulse Ox 97 03/30/17 09:06 - Labs Result Diagrams: 01/08/17 06:06 01/08/17 06:06 Labs: Laboratory Results - last 24 hr 01/07/17 01/08/17 06:10 06:06 WBC 2.4 L RBC 1.84 L Hgb 6.0 L* Hct 18.8 L MCV 102.3 H MCH 32.8 H MCHC 32.1 L RDW 16.9 H Plt Count 87 L MPV 9.2 Neut % (Auto) 69.3 Lymph % (Auto) 13.6 L [place] % (Auto) 15.9 H Eos % (Auto) 0.6 Baso % (Auto) 0.6 Neut # 1.6 L Lymph # 0.3 L [place] # 0.4 Eos # 0.0 Baso # 0.0 PT 16.7 H INR 1.5 Sodium 138 143 Potassium 4.5 4.0 Chloride 106 103 Carbon Dioxide 27 32 H Anion Gap 10 12 BUN 24 H 21 H Creatinine 0.8 0.9 Est GFR ( Amer) > 60 > 60 Est GFR (Non-Af Amer) > 60 > 60 Random Glucose 103 97 Calcium 6.7 L 7.1 L Total Bilirubin 0.3 0.7 GGT 131 H AST 46 52 ALT 36 50 Alkaline Phosphatase 163 H D 324 H D Total Protein 4.1 L 6.4 Total Protein (PEP) 6.4 Albumin 1.2 L D 2.0 L D Globulin 2.8 4.4 H Albumin/Globulin Ratio 0.4 L 0.5 L Hepatitis A IgM Ab Negative Hep Bs Antigen Negative Hep B Core IgM Ab Negative Hepatitis C Antibody Negative - EKG Data EKG Interpreted by: Myself (RBBB, Prolonged QTC, Afib.) Assessment & Plan - Assessment and Plan (Free Text) Assessment: 1) Non sustained ventricular tachycardia ( NSVT) 2) Acute on chronic anemia 3) Pancytopenia 4) Anasarca 5) Transaminitis 6) Rate controlled Afib 7) Pulm htn 8) Borderline hypotension 9) Pneumonia Plan: - EKG on admission with RBBB, prolonged QTc, and afib. Chest xray with cardiomegaly, pleural effusion airspace opacity, and upper lobe granuloma. - Trop normal, pro bnp of 8440 on admission. - Likely 2nd to cardiomyopathy versus valvular. - Patient unable to take beta tiffany due to borderline hypotension. - Continue to monitor on tele. - Obtain echo. - Continue lasix 20 mg ivp q12. - Patient is on avelox for pneumonia. - Coumadin on hold 2nd to Gi bleeding. - Gi, cardio, and heme/onc following. Patient seen, examined with Dr Harvey. - Date & Time Date: 01/08/17 Time: 11:10 <Jayme Harvey - Last Filed: 01/08/17 14:08> Meds - Medications Medications: Current Medications Acetaminophen (Tylenol 325mg Tab) 650 mg PO Q4H PRN PRN Reason: Pain, Mild (1-3) Albuterol/Ipratropium (Duoneb 3 Mg/0.5 Mg (3 Ml) Ud) 3 ml IH RQ6 PRN PRN Reason: Shortness of Breath Famotidine (Pepcid) 20 mg PO DAILY [facility] Last Admin: 01/08/17 10:11 Dose: 20 mg Ferric Sodium Gluconate Complex (Ferrlecit) 125 mg IVPB DAILY [facility] Stop: 01/15/17 10:01 Last Admin: 01/08/17 11:00 Dose: 125 mg Folic Acid (Folic Acid) 2 mg PO DAILY [facility] Last Admin: 01/08/17 10:11 Dose: 2 mg Furosemide (Lasix) 20 mg IVP BID [facility] Last Admin: 01/08/17 10:21 Dose: 20 mg Moxifloxacin HCl (Avelox Iv 400mg/250ml Ns) 250 mls @ 167 mls/hr IVPB Q24H [facility] Last Admin: 01/08/17 12:00 Dose: 167 mls/hr Lactulose (Enulose) 20 gm PO DAILY PRN PRN Reason: Constipation Magnesium Hydroxide (Milk Of Magnesia) 30 ml PO DAILY PRN PRN Reason: Constipation Pyridoxine HCl (Vitamin B6) 100 mg PO DAILY [facility] Last Admin: 01/08/17 10:11 Dose: 100 mg Results - Vital Signs Recent Vital Signs: Last Vital Signs Temp 97.4 F L 01/08/17 07:02 Pulse 96 H 01/08/17 10:16 Resp 18 01/08/17 09:06 BP 100/62 01/08/17 10:21 Pulse Ox 97 01/08/17 09:06 - Labs Result Diagrams: 01/08/17 06:06 01/08/17 06:06 Labs: Laboratory Results - last 24 hr 01/07/17 01/08/17 06:10 06:06 WBC 2.4 L RBC 1.84 L Hgb 6.0 L* Hct 18.8 L MCV 102.3 H MCH 32.8 H MCHC 32.1 L RDW 16.9 H Plt Count 87 L MPV 9.2 Neut % (Auto) 69.3 Lymph % (Auto) 13.6 L [place] % (Auto) 15.9 H Eos % (Auto) 0.6 Baso % (Auto) 0.6 Neut # 1.6 L Lymph # 0.3 L [place] # 0.4 Eos # 0.0 Baso # 0.0 PT 16.7 H INR 1.5 Sodium 143 Potassium 4.0 Chloride 103 Carbon Dioxide 32 H Anion Gap 12 BUN 21 H Creatinine 0.9 Est GFR ( Amer) > 60 Est GFR (Non-Af Amer) > 60 Random Glucose 97 Calcium 7.1 L Total Bilirubin 0.7 GGT 131 H AST 52 ALT 50 Alkaline Phosphatase 324 H D Total Protein 6.4 Total Protein (PEP) 6.4 Albumin 2.0 L D Albumin (PEP) 1.7 L Globulin 4.4 H Albumin/Globulin Ratio 0.5 L Dpyti-4-Ekuhimvbz 0.4 H Micdd-0-Mtcopmxcj 0.7 Saqx-3-Etpbmnsv 0.2 L Ghtj-0-Xxntmgbb 0.2 Gamma Globulins 3.1 H Abnorm Protein Band 1 2.59 H Abnorm Protein Band 2 TEST NOT PERFORMED Abnorm Protein Band 3 TEST NOT PERFORMED PATI & SPEP Interp See note Hepatitis A IgM Ab Negative Hep Bs Antigen Negative Hep B Core IgM Ab Negative Hepatitis C Antibody Negative Attending/Attestation - Attestation I have personally seen and examined this patient.: Yes I have fully participated in the care of the patient.: Yes I have reviewed all pertinent clinical information: Yes Notes (Text): 01/08/17 14:08 will follow up keila badillo
[2017-01-08] MEDS: Pyridoxine 100 mg Tab PO SCH (10:11)
--- NOTE | 2017-01-08 10:45 | CP.PCM.PN ---
Addendum entered and electronically signed by Catalina Parson DO 12:49: [facility] records-EGD on recent discharge 12/24/16 without active bleeding, small esophageal varices, hiatal hernia diagnosis of GI Bleed and anemia secondary to cecal mass- highly suspicious for malignancy 07/2012- EGD-small esophageal varices, hiatal hernia [id number] friable cecal mass, not biopsied, 1cm descending polyp Discussed with son- he recalls diagnosis and father's decision at that time to not undergo further workup - states he spoke to primary team and has made decision for palliative care and plan to keep him comfortable thank you for the opportunity to participate in the care of this patient. Please contact with questions or concerns. Original Note: <Catalina Parson - Last Filed: 01/08/17 10:40> Subjective - Date & Time of Evaluation Date of Evaluation: 01/08/17 Time of Evaluation: 10:41 - Subjective Subjective: Gastroenterology Fellow/PGY4 Progress Note Patient continues to feel weak. Small formed brown bowel movement. Nursing denies vomiting, hematemesis, melena or hematochezia. A 12-point review of systems negative except for as above. Objective - Vital Signs/Intake and Output Vital Signs (last 24 hours): Temp Pulse Resp BP Pulse Ox 97.4 F L 96 H 18 100/62 97 01/08/17 07:02 01/08/17 10:16 01/08/17 09:06 01/08/17 10:21 01/08/17 09:06 Intake and Output: 01/08/17 01/08/17 06:59 18:59 Intake Total 390 Output Total 1200 Balance -810 - Medications Medications: Current Medications Acetaminophen (Tylenol 325mg Tab) 650 mg PO Q4H PRN PRN Reason: Pain, Mild (1-3) Albuterol/Ipratropium (Duoneb 3 Mg/0.5 Mg (3 Ml) Ud) 3 ml IH RQ6 PRN PRN Reason: Shortness of Breath Famotidine (Pepcid) 20 mg PO DAILY [facility] Last Admin: 01/08/17 10:11 Dose: 20 mg Ferric Sodium Gluconate Complex (Ferrlecit) 125 mg IVPB DAILY [facility] Stop: 01/15/17 10:01 Last Admin: 01/07/17 09:23 Dose: 125 mg Folic Acid (Folic Acid) 2 mg PO DAILY [facility] Last Admin: 01/08/17 10:11 Dose: 2 mg Furosemide (Lasix) 20 mg IVP BID [facility] Last Admin: 01/08/17 10:21 Dose: 20 mg Moxifloxacin HCl (Avelox Iv 400mg/250ml Ns) 250 mls @ 167 mls/hr IVPB Q24H [facility] Last Admin: 01/07/17 11:40 Dose: 167 mls/hr Lactulose (Enulose) 20 gm PO DAILY PRN PRN Reason: Constipation Magnesium Hydroxide (Milk Of Magnesia) 30 ml PO DAILY PRN PRN Reason: Constipation Pyridoxine HCl (Vitamin B6) 100 mg PO DAILY [facility] Last Admin: 01/08/17 10:11 Dose: 100 mg - Labs Labs: 01/08/17 06:06 01/08/17 06:06 PT 16.7 SECONDS (9.7-12.2) H 01/08/17 06:06 INR 1.5 01/08/17 06:06 - Constitutional Appears: Non-toxic, No Acute Distress - Head Exam Head Exam: ATRAUMATIC, NORMOCEPHALIC - Eye Exam Eye Exam: EOMI, PERRL Pupil Exam: PERRL. absent: Miosis, Mydriatic - ENT Exam ENT Exam: Mucous Membranes Moist, Normal Oropharynx - Neck Exam Neck Exam: Full ROM, Normal Inspection - Respiratory Exam Respiratory Exam: Clear to Ausculation Bilateral. absent: Rales, Rhonchi, Wheezes Additional comments: clear to auscultation bilateral upper lobes, decreased bibasilar breath sounds - Cardiovascular Exam Cardiovascular Exam: JVD, RRR, +S1, +S2. absent: Gallop, Rubs - GI/Abdominal Exam GI & Abdominal Exam: Soft, Normal Bowel Sounds. absent: Distended, Firm, Guarding, Rigid, Tenderness, Organomegaly, Rebound - Extremities Exam Extremities Exam: Full ROM Additional comments: 3+ B/L LE pitting edema, chronic lymphedema, B/L UE lymphedema - Neurological Exam Neurological Exam: Alert, Awake - Psychiatric Exam Psychiatric exam: Normal Affect, Normal Mood - Skin Skin Exam: Dry, Intact, Normal Color, Warm Assessment and Plan - Assessment and Plan (Free Text) Assessment: 86 year old male with history of CHF, pulmonary hypertension, Afib previously on Coumadin since , recent admission to [facility] on 12/09 for hemorrhagic shock with coffee-ground emesis, treated with iron supplementation, Epogen, and Venofer due to 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 Presenting with weakness and shortness of breath. Active treatment of symptomatic, acute on chronic anemia with medical management. On record review prior colonoscopy 10/2000 with likely polypectomy, endorsed by patient to be normal. Plan: >discussed with patient and son- refusal of blood transfusion as Tenriism -son-Jori Manzano [phone] >continue PPI >Hematology managing- Iron transfusion, Procrit >DISCUSSED WITH [facility]- release form not received >obtain records from [facility]- RE-FAX RECORD RELEASE TODAY -confirm prior endoscopic evaluation- EGD /colonoscopy and/or CT A/P with recent GI Bleed >consider CT A/P if not recently performed >patient and family express understanding of risk of morbidity/mortality with refusal of blood transfusions due to caodaism belief of being a Tenriism <Michael Garcia - Last Filed: 01/08/17 13:21> Objective - Vital Signs/Intake and Output Vital Signs (last 24 hours): Temp Pulse Resp BP Pulse Ox 97.4 F L 96 H 18 100/62 97 01/08/17 07:02 01/08/17 10:16 01/08/17 09:06 01/08/17 10:21 01/08/17 09:06 Intake and Output: 01/08/17 01/08/17 06:59 18:59 Intake Total 390 Output Total 1200 Balance -810 - Medications Medications: Current Medications Acetaminophen (Tylenol 325mg Tab) 650 mg PO Q4H PRN PRN Reason: Pain, Mild (1-3) Albuterol/Ipratropium (Duoneb 3 Mg/0.5 Mg (3 Ml) Ud) 3 ml IH RQ6 PRN PRN Reason: Shortness of Breath Famotidine (Pepcid) 20 mg PO DAILY [facility] Last Admin: 01/08/17 10:11 Dose: 20 mg Ferric Sodium Gluconate Complex (Ferrlecit) 125 mg IVPB DAILY [facility] Stop: 01/15/17 10:01 Last Admin: 01/08/17 11:00 Dose: 125 mg Folic Acid (Folic Acid) 2 mg PO DAILY [facility] Last Admin: 01/08/17 10:11 Dose: 2 mg Furosemide (Lasix) 20 mg IVP BID [facility] Last Admin: 01/08/17 10:21 Dose: 20 mg Moxifloxacin HCl (Avelox Iv 400mg/250ml Ns) 250 mls @ 167 mls/hr IVPB Q24H [facility] Last Admin: 01/08/17 12:00 Dose: 167 mls/hr Lactulose (Enulose) 20 gm PO DAILY PRN PRN Reason: Constipation Magnesium Hydroxide (Milk Of Magnesia) 30 ml PO DAILY PRN PRN Reason: Constipation Pyridoxine HCl (Vitamin B6) 100 mg PO DAILY [facility] Last Admin: 01/08/17 10:11 Dose: 100 mg - Labs Labs: 01/08/17 06:06 01/08/17 06:06 PT 16.7 SECONDS (9.7-12.2) H 01/08/17 06:06 INR 1.5 01/08/17 06:06 Attending/Attestation - Attestation I have personally seen and examined this patient.: Yes I have fully participated in the care of the patient.: Yes I have reviewed all pertinent clinical information, including history, physical exam and plan: Yes Notes (Text): 01/08/17 13:17 I have seen and examined patient with GI fellow. No acute events overnight, he continues to endorse dyspnea but otherwise denies abdominal pain, nausea, vomiting, melena, fever/chills. Tolerating PO diet without difficulty. Review of vitals from today shows tachycardia. CHF Cirrhosis - unclear etiology Atrial fibrillation Cecal mass lesion, diagnosed in 2011 Chronic anemia - H/H stable without evidence of overt bleeding noted. Patient refusing administration of blood products due to Tenriism - Follow up hematology recommendations, currently on IV procrit and iron therapy - Diet as tolerated - Patient with known colonic malignancy and does not wish to pursue additional management, follow up palliative care recommendations - Follow up cardiology recommendations given ongoing patient dyspnea likely related to volume overload in setting of CHF - No planned further GI interventions, will sign off case. Please reconsult as necessary, thank you.
[2017-01-08] MEDS: Ferric Sodium Gluconat Complex 62.5 mg/5 ml Vial IVPB SCH (11:00)
--- NOTE | 2017-01-08 11:23 | CARD ---
APPROVED REPORT EXAM: Two-dimensional and M-mode echocardiogram with Doppler and color Doppler. Other Information Quality : GoodRhythm : NSR INDICATION Dyspnea Pleural Effusion Congestive Heart Failure M-Mode DIMENSIONS RVDd6.59 (2.1-3.2cm)Left Atrium (MM)5.39 (2.5-4.0cm) IVSd0.69 (0.7-1.1cm)Aortic Root3.01 (2.2-3.7cm) LVDd4.12 (4.0-5.6cm)Aortic Cusp Exc.2.05 (1.5-2.0cm) PWd0.91 (0.7-1.1cm)FS (%) 46 % LVDs2.21 (2.0-3.8cm)LVEF (%)78 (>50%) Aortic Valve AI P 1/2 [id number] Mitral Valve MV E Mvkgzcmy83.1cm/sMV A Fcjjoslj49.4cm/sE/A ratio1.7 TDI E/Lateral E'0.0E/Medial E'0.0 Tricuspid Valve TR Peak [id number]/sTR Peak Gr.[id number] LEFT VENTRICLE The left ventricle is normal size. There is normal left ventricular wall thickness. The left ventricular function is normal. The left ventricular ejection fraction is within the normal range. There is normal LV segmental wall motion. The left ventricular diastolic function is normal. RIGHT VENTRICLE The right ventricle is severely dilated. ATRIA The left atrium is moderately dilated. The right atrium is severely dilated. AORTIC VALVE There is mild aortic regurgitation. MITRAL VALVE Mitral regurgitation is mild. TRICUSPID VALVE There is severe tricuspid regurgitation. <Conclusion> Normal LV systolic function. Severely dilated RV. Severe TR. Mild MR. Mild AR. Dilated LA and RA. Pleural effusion noted.
[2017-01-08] MEDS: Moxifloxacin IV 400mg/250ml NS 250 ML IVPB SCH (12:00)
--- NOTE | 2017-01-08 12:04 | CP.PCM.CON ---
History of Present Illness - History of Present Illness History of Present Illness: Palliative consult requested by Doctor Romero Reason: goals of care patient is a 86 yo male, Jehovah witness admitted from [facility] with SOB and generalized weakness. 2 1/2 weeks ago, patient was treated at [facility] for GI bleed. As per report, the generalized edema has increased after discharge. Patient admitted at with Hb 7.1, dropping to 6.0 today. Ferliccet IV and Folic acid on board. The CXR was significant for pleural effusion and upper lobes granuloma . Doctor Kaia on board. Avelox IV startted. PMH: pulmonary HTN, anemia, CHF Soc. Hx: , grandson Jori is a bus person dishwasher, Jehovah Witness Fam. Hx: Unknown Review of Systems - Constitutional Constitutional: Weakness - Cardiovascular Cardiovascular: Leg Edema, Palpitations, Pedal Edema, Rapid Heart Rate - Respiratory Respiratory: Dyspnea, Chest Congestion - Musculoskeletal Musculoskeletal: Muscle Weakness - Neurological Neurological: Memory Loss - Hematologic/Lymphatic Hematologic: Other Additional comments: Anemia, GI bleed Past Patient History - Infectious Disease Hx of Infectious Diseases: None - Past Medical History & Family History Past Medical History?: Yes - Past Social History Smoking Status: Former Smoker - CARDIAC Hx Cardiac Disorders: Yes Hx Atrial Fibrillation: Yes Hx Cardia Arrhythmia: Yes Hx Congestive Heart Failure: Yes Hx Hypertension: Yes Hx Peripheral Edema: Yes - PULMONARY Hx Respiratory Disorders: Yes Other/Comment: PULMONARY HYPERTENSION - NEUROLOGICAL Hx Neurological Disorder: Yes HX Cerebrovascular Accident: Yes - HEENT Hx HEENT Problems: Yes Hx Deafness: Yes (hearing aid) - RENAL Hx Chronic Kidney Disease: No - ENDOCRINE/METABOLIC Hx Diabetes Mellitus Type 2: Yes - HEMATOLOGICAL/ONCOLOGICAL Hx Blood Disorders: Yes Hx Anemia: Yes - MUSCULOSKELETAL/RHEUMATOLOGICAL Hx Musculoskeletal Disorders: Yes Hx Falls: No Hx Unsteady Gait: Yes - GASTROINTESTINAL Hx Gastrointestinal Disorders: Yes Other/Comment: GI BLEED - GENITOURINARY/GYNECOLOGICAL Hx Genitourinary Disorders: Yes Hx Incontinence: Yes - PSYCHIATRIC Hx Psychophysiologic Disorder: No Hx Substance Use: No - SURGICAL HISTORY Hx Surgeries: Yes Hx Herniorrhaphy: Yes (left) - ANESTHESIA Hx Anesthesia: Yes Hx Anesthesia Reactions: No Hx Malignant Hyperthermia: No Has any member of the family had a problem w/ anesthesia?: No Meds Allergies/Adverse Reactions: Allergies Allergy/AdvReac Type Severity Reaction Status Date / Time No Known Allergies Allergy Verified 01/06/17 16:09 - Medications Medications: Current Medications Acetaminophen (Tylenol 325mg Tab) 650 mg PO Q4H PRN PRN Reason: Pain, Mild (1-3) Albuterol/Ipratropium (Duoneb 3 Mg/0.5 Mg (3 Ml) Ud) 3 ml IH RQ6 PRN PRN Reason: Shortness of Breath Famotidine (Pepcid) 20 mg PO DAILY [facility] Last Admin: 01/08/17 10:11 Dose: 20 mg Ferric Sodium Gluconate Complex (Ferrlecit) 125 mg IVPB DAILY [facility] Stop: 01/15/17 10:01 Last Admin: 01/08/17 11:00 Dose: 125 mg Folic Acid (Folic Acid) 2 mg PO DAILY [facility] Last Admin: 01/08/17 10:11 Dose: 2 mg Furosemide (Lasix) 20 mg IVP BID [facility] Last Admin: 01/08/17 10:21 Dose: 20 mg Moxifloxacin HCl (Avelox Iv 400mg/250ml Ns) 250 mls @ 167 mls/hr IVPB Q24H [facility] Last Admin: 01/07/17 11:40 Dose: 167 mls/hr Lactulose (Enulose) 20 gm PO DAILY PRN PRN Reason: Constipation Magnesium Hydroxide (Milk Of Magnesia) 30 ml PO DAILY PRN PRN Reason: Constipation Pyridoxine HCl (Vitamin B6) 100 mg PO DAILY [facility] Last Admin: 01/08/17 10:11 Dose: 100 mg Physical Exam - Constitutional Appears: Chronically Ill - Head Exam Head Exam: ATRAUMATIC - Eye Exam Eye Exam: Normal appearance Pupil Exam: NORMAL ACCOMODATION - ENT Exam ENT Exam: Mucous Membranes Dry Additional comments: Poor dentition - Neck Exam Neck exam: Positive for: Normal Inspection - Respiratory Exam Respiratory Exam: Decreased Breath Sounds, Rhonchi - Cardiovascular Exam Cardiovascular Exam: Tachycardia - GI/Abdominal Exam GI & Abdominal Exam: Hypoactive Bowel Sounds - Rectal Exam Rectal Exam: Deferred - Extremities Exam Extremities exam: Positive for: pedal edema - Back Exam Back exam: NORMAL INSPECTION - Neurological Exam Neurological exam: Alert - Psychiatric Exam Psychiatric exam: Flat Affect - Skin Skin Exam: Pallor Results - Vital Signs Recent Vital Signs: Last Vital Signs Temp 97.4 F L 01/08/17 07:02 Pulse 96 H 01/08/17 10:16 Resp 18 03/30/17 09:06 BP 100/62 01/08/17 10:21 Pulse Ox 97 01/08/17 09:06 - Labs Result Diagrams: 01/08/17 06:06 01/08/17 06:06 Labs: Laboratory Results - last 24 hr 01/07/17 01/08/17 06:10 06:06 WBC 2.4 L RBC 1.84 L Hgb 6.0 L* Hct 18.8 L MCV 102.3 H MCH 32.8 H MCHC 32.1 L RDW 16.9 H Plt Count 87 L MPV 9.2 Neut % (Auto) 69.3 Lymph % (Auto) 13.6 L Hodgeman % (Auto) 15.9 H Eos % (Auto) 0.6 Baso % (Auto) 0.6 Neut # 1.6 L Lymph # 0.3 L Hodgeman # 0.4 Eos # 0.0 Baso # 0.0 PT 16.7 H INR 1.5 Sodium 143 Potassium 4.0 Chloride 103 Carbon Dioxide 32 H Anion Gap 12 BUN 21 H Creatinine 0.9 Est GFR ( Amer) > 60 Est GFR (Non-Af Amer) > 60 Random Glucose 97 Calcium 7.1 L Total Bilirubin 0.7 GGT 131 H AST 52 ALT 50 Alkaline Phosphatase 324 H D Total Protein 6.4 Total Protein (PEP) 6.4 Albumin 2.0 L D Globulin 4.4 H Albumin/Globulin Ratio 0.5 L Hepatitis A IgM Ab Negative Hep Bs Antigen Negative Hep B Core IgM Ab Negative Hepatitis C Antibody Negative Assessment & Plan - Assessment and Plan (Free Text) Assessment: Code status DNR/DNI. Advance directive on chart. PPS 20%. I reviewed medical records, all diagnostic studies, examined and interviewed patient in the bed and discussed his presentation with Doctor Nick and Doctor Lance. Total time spent, 60 min. Patient is alert , oriented and forgetful. Patient did not know what NH he came from nor for how long his symptoms have persisted. Patient looks ill. Gross edema, anasacra to upper and lower extremities. As per patient, edema has gone down since admission. Patient takes lasix 20 mg BID. Albumin 2.2. Breath sounds are congested with a lot of ronchi noted. Patient denies cough. CXR significant for granulomatous changes. O2 Sat 97 % on NC. BP 100/62, HR 96. I discussed his low Hb and his yazidi preferences not to receive blood transfusion. Patient confirmed his yazidi believes against it. Patient has restricted ability to reposition due to condition. There is decreased ROM to upper and lower extremities. Patient needs max assistance with feedings and ADLs. With patient's son Mr. Norman, in phone conversation we discussed end of life care for this patient. Mr. Emerson Briggs admitted that his mother recently from terminal illness and he sees similarity in his father's condition. His goal for his father is to be comfortable as much as possible and naturally. Mr. Emerson briggs agreed that comfort measures would be appropriate level of care for his father. Impression * This is a very ill man with significantly destroyed quality of life due to his condtion * Anemia, difficult to manage due to yazidi preferences * Anasarca * Limited ROM * Fully dependent of assistance with ADLs * Forgetfulness * Shortness of breath Suggestion * Correct Albumin level; hopefully it will pull fluid back to circulation , reduce edema and promote stable BP * Promote skin integrity * Assist with feedings * Would consider comfort care only as the most appropriate level of care for this patient. * Would stop further diagnostic studies, including blood work. Son agreed with this plan * Agree with DNR/DNI Thank you for consulting Palliative care.
[2017-01-08 12:10] LABS: ABNORMAL PROTEIN BAND 1 2.59 g/dL (None Detected); BETA 1 GLOBULIN 0.2 g/dL (0.4-0.6); BETA 2 GLOBULIN 0.2 g/dL (0.2-0.5); GAMMA GLOBULIN 3.1 g/dL (0.8-1.7)
--- NOTE | 2017-01-08 21:23 | CP.PCM.PN ---
Subjective - Date & Time of Evaluation Date of Evaluation: 01/08/17 Time of Evaluation: 12:05 - Subjective Subjective: Patient seen and evaluated Patient condition remains same Denies chest pain and dyspnea Objective - Vital Signs/Intake and Output Vital Signs (last 24 hours): Temp Pulse Resp BP Pulse Ox 97.2 F L 85 20 100/68 100 01/08/17 15:23 01/08/17 15:30 01/08/17 15:23 01/08/17 20:08 01/08/17 15:23 Intake and Output: 01/08/17 01/09/17 18:59 06:59 Intake Total 650 Output Total 600 Balance 50 - Medications Medications: Current Medications Acetaminophen (Tylenol 325mg Tab) 650 mg PO Q4H PRN PRN Reason: Pain, Mild (1-3) Albuterol/Ipratropium (Duoneb 3 Mg/0.5 Mg (3 Ml) Ud) 3 ml IH RQ6 PRN PRN Reason: Shortness of Breath Famotidine (Pepcid) 20 mg PO DAILY [facility] Last Admin: 01/08/17 10:11 Dose: 20 mg Ferric Sodium Gluconate Complex (Ferrlecit) 125 mg IVPB DAILY [facility] Stop: 01/15/17 10:01 Last Admin: 01/08/17 11:00 Dose: 125 mg Folic Acid (Folic Acid) 2 mg PO DAILY [facility] Last Admin: 01/08/17 10:11 Dose: 2 mg Furosemide (Lasix) 20 mg IVP BID [facility] Last Admin: 01/08/17 20:08 Dose: 20 mg Moxifloxacin HCl (Avelox Iv 400mg/250ml Ns) 250 mls @ 167 mls/hr IVPB Q24H [facility] Last Admin: 01/08/17 12:00 Dose: 167 mls/hr Lactulose (Enulose) 20 gm PO DAILY PRN PRN Reason: Constipation Magnesium Hydroxide (Milk Of Magnesia) 30 ml PO DAILY PRN PRN Reason: Constipation Pyridoxine HCl (Vitamin B6) 100 mg PO DAILY [facility] Last Admin: 01/08/17 10:11 Dose: 100 mg - Labs Labs: 01/08/17 06:06 01/08/17 06:06 PT 16.7 SECONDS (9.7-12.2) H 01/08/17 06:06 INR 1.5 01/08/17 06:06
--- NOTE | 2017-01-09 00:57 | CP.PCM.PN ---
Subjective - Date & Time of Evaluation Date of Evaluation: 01/08/17 Time of Evaluation: 16:00 - Subjective Subjective: No complaints. Objective - Vital Signs/Intake and Output Vital Signs (last 24 hours): Temp Pulse Resp BP Pulse Ox 97.2 F L 85 20 100/68 100 01/08/17 15:23 01/08/17 15:30 01/08/17 15:23 01/08/17 20:08 01/08/17 15:23 Intake and Output: 01/08/17 01/09/17 18:59 06:59 Intake Total 650 150 Output Total 600 400 Balance 50 -250 - Medications Medications: Current Medications Acetaminophen (Tylenol 325mg Tab) 650 mg PO Q4H PRN PRN Reason: Pain, Mild (1-3) Albuterol/Ipratropium (Duoneb 3 Mg/0.5 Mg (3 Ml) Ud) 3 ml IH RQ6 PRN PRN Reason: Shortness of Breath Famotidine (Pepcid) 20 mg PO DAILY [facility] Last Admin: 01/08/17 10:11 Dose: 20 mg Ferric Sodium Gluconate Complex (Ferrlecit) 125 mg IVPB DAILY [facility] Stop: 01/15/17 10:01 Last Admin: 01/08/17 11:00 Dose: 125 mg Folic Acid (Folic Acid) 2 mg PO DAILY [facility] Last Admin: 01/08/17 10:11 Dose: 2 mg Furosemide (Lasix) 20 mg IVP BID [facility] Last Admin: 01/08/17 20:08 Dose: 20 mg Moxifloxacin HCl (Avelox Iv 400mg/250ml Ns) 250 mls @ 167 mls/hr IVPB Q24H [facility] Last Admin: 01/08/17 12:00 Dose: 167 mls/hr Lactulose (Enulose) 20 gm PO DAILY PRN PRN Reason: Constipation Magnesium Hydroxide (Milk Of Magnesia) 30 ml PO DAILY PRN PRN Reason: Constipation Pyridoxine HCl (Vitamin B6) 100 mg PO DAILY [facility] Last Admin: 01/08/17 10:11 Dose: 100 mg - Labs Labs: 01/08/17 06:06 01/08/17 06:06 PT 16.7 SECONDS (9.7-12.2) H 01/08/17 06:06 INR 1.5 01/08/17 06:06 - Head Exam Head Exam: ATRAUMATIC - Eye Exam Eye Exam: Normal appearance - ENT Exam ENT Exam: Mucous Membranes Dry - Respiratory Exam Respiratory Exam: NORMAL BREATHING PATTERN - Cardiovascular Exam Cardiovascular Exam: +S1, +S2 - GI/Abdominal Exam GI & Abdominal Exam: Normal Bowel Sounds - Extremities Exam Extremities Exam: Pedal Edema Assessment and Plan (1) Pancytopenia Assessment & Plan: on iron, b12, Procrit minimize blood draws Status: Acute (2) Elevated serum globulin level Status: Acute
--- NOTE | 2017-01-09 07:50 | CP.PCM.PN ---
<Kaylyn Chan - Last Filed: 01/09/17 10:27> Subjective - Date & Time of Evaluation Date of Evaluation: 01/09/17 Time of Evaluation: 07:45 - Subjective Subjective: EP cardiology progress note for Dr Harvey. Patient reports the shortness of breath, denies cp, or palpitations. Rate controlled afib on tele. Objective - Vital Signs/Intake and Output Vital Signs (last 24 hours): Temp Pulse Resp BP Pulse Ox 97.3 F L 80 20 94/63 L 94 L 01/08/17 23:05 01/08/17 23:05 01/08/17 23:05 01/08/17 23:05 01/08/17 23:05 Intake and Output: 01/09/17 01/09/17 06:59 18:59 Intake Total 150 Output Total 750 Balance -600 - Medications Medications: Current Medications Acetaminophen (Tylenol 325mg Tab) 650 mg PO Q4H PRN PRN Reason: Pain, Mild (1-3) Albuterol/Ipratropium (Duoneb 3 Mg/0.5 Mg (3 Ml) Ud) 3 ml IH RQ6 PRN PRN Reason: Shortness of Breath Famotidine (Pepcid) 20 mg PO DAILY [facility] Last Admin: 01/08/17 10:11 Dose: 20 mg Ferric Sodium Gluconate Complex (Ferrlecit) 125 mg IVPB DAILY [facility] Stop: 01/15/17 10:01 Last Admin: 01/08/17 11:00 Dose: 125 mg Folic Acid (Folic Acid) 2 mg PO DAILY [facility] Last Admin: 01/08/17 10:11 Dose: 2 mg Furosemide (Lasix) 20 mg IVP BID [facility] Last Admin: 01/08/17 20:08 Dose: 20 mg Moxifloxacin HCl (Avelox Iv 400mg/250ml Ns) 250 mls @ 167 mls/hr IVPB Q24H [facility] Last Admin: 01/08/17 12:00 Dose: 167 mls/hr Lactulose (Enulose) 20 gm PO DAILY PRN PRN Reason: Constipation Magnesium Hydroxide (Milk Of Magnesia) 30 ml PO DAILY PRN PRN Reason: Constipation Pyridoxine HCl (Vitamin B6) 100 mg PO DAILY [facility] Last Admin: 01/08/17 10:11 Dose: 100 mg - Labs Labs: 01/08/17 06:06 01/08/17 06:06 PT 16.7 SECONDS (9.7-12.2) H 01/08/17 06:06 INR 1.5 01/08/17 06:06 - Constitutional Appears: No Acute Distress - Head Exam Head Exam: NORMAL INSPECTION - Eye Exam Eye Exam: Normal appearance - ENT Exam ENT Exam: Mucous Membranes Moist - Neck Exam Neck Exam: Normal Inspection - Respiratory Exam Respiratory Exam: Decreased Breath Sounds, Rales (at the bases), NORMAL BREATHING PATTERN. absent: Wheezes, Respiratory Distress - Cardiovascular Exam Cardiovascular Exam: Irregular Rhythm, +S1, +S2. absent: RRR - GI/Abdominal Exam GI & Abdominal Exam: Distended, Soft, Normal Bowel Sounds - Extremities Exam Extremities Exam: Pedal Edema - Neurological Exam Additional comments: Lethargic. - Psychiatric Exam Psychiatric exam: Normal Affect, Normal Mood - Skin Skin Exam: Abrasion, Warm Additional comments: Anasartic. 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 2) Non sustained ventricular tachycardia ( NSVT) 3) Acute on chronic anemia 4) Pancytopenia 5) Anasarca 6) Transaminitis 7) Afib 8) Pulm htn 9) Borderline hypotension 10) Pneumonia 11) Pleural effusion Plan: Continue diuresis. Consider diuresis with inotropes in the setting of hypotension. R/O DVT/PE for RV dilation/strain. On laxis 20 mg ivp bid. Patient is also on abx for pneumonia Patient should be on anticoagulation for afib if no medical contraindication. Patient seen, examined, case discussed with Dr Harvey. <Jayme Harvey - Last Filed: 01/10/17 07:57> Objective - Vital Signs/Intake and Output Vital Signs (last 24 hours): Temp Pulse Resp BP Pulse Ox 97.3 F L 86 20 99/61 L 98 01/09/17 23:00 01/10/17 02:21 01/09/17 23:00 01/09/17 23:00 01/09/17 23:00 Intake and Output: 01/10/17 01/10/17 06:59 18:59 Intake Total 100 Output Total 700 Balance -600 - Medications Medications: Current Medications Acetaminophen (Tylenol 325mg Tab) 650 mg PO Q4H PRN PRN Reason: Pain, Mild (1-3) Albuterol/Ipratropium (Duoneb 3 Mg/0.5 Mg (3 Ml) Ud) 3 ml IH RQ6 PRN PRN Reason: Shortness of Breath Famotidine (Pepcid) 20 mg PO DAILY [facility] Last Admin: 01/09/17 10:48 Dose: 20 mg Ferric Sodium Gluconate Complex (Ferrlecit) 125 mg IVPB DAILY [facility] Stop: 01/15/17 10:01 Last Admin: 01/09/17 10:45 Dose: 125 mg Folic Acid (Folic Acid) 2 mg PO DAILY [facility] Last Admin: 01/09/17 10:48 Dose: 2 mg Furosemide (Lasix) 20 mg IVP BID [facility] Last Admin: 01/09/17 18:27 Dose: 20 mg Moxifloxacin HCl (Avelox Iv 400mg/250ml Ns) 250 mls @ 167 mls/hr IVPB Q24H [facility] Last Admin: 01/09/17 12:00 Dose: 167 mls/hr Lactulose (Enulose) 20 gm PO DAILY PRN PRN Reason: Constipation Magnesium Hydroxide (Milk Of Magnesia) 30 ml PO DAILY PRN PRN Reason: Constipation Pregabalin (Lyrica) 50 mg PO BID [facility] Last Admin: 01/09/17 18:26 Dose: 50 mg Pyridoxine HCl (Vitamin B6) 100 mg PO DAILY [facility] Last Admin: 01/09/17 10:48 Dose: 100 mg - Labs Labs: 01/08/17 06:06 01/08/17 06:06 PT 16.7 SECONDS (9.7-12.2) H 01/08/17 06:06 INR 1.5 01/08/17 06:06 Attending/Attestation - Attestation I have personally seen and examined this patient.: Yes I have fully participated in the care of the patient.: Yes I have reviewed all pertinent clinical information, including history, physical exam and plan: Yes Notes (Text): 01/10/17 07:56 afib rate controlled tolerating PO
[2017-01-09] MEDS: Ferric Sodium Gluconat Complex 62.5 mg/5 ml Vial IVPB SCH (10:45)
[2017-01-09] MEDS: Pyridoxine 100 mg Tab PO SCH (10:48)
[2017-01-09] MEDS: Moxifloxacin IV 400mg/250ml NS 250 ML IVPB SCH (12:00)
--- NOTE | 2017-01-09 19:36 | CP.PCM.PN ---
Subjective - Date & Time of Evaluation Date of Evaluation: 01/09/17 Time of Evaluation: 10:00 - Subjective Subjective: Dr. Lucas service: Patient seen and examined in room. Patient is complaining of pain in his feet today. He still feels very swollen. Objective - Vital Signs/Intake and Output Vital Signs (last 24 hours): Temp Pulse Resp BP Pulse Ox 97.2 F L 112 H 22 100/58 L 95 01/09/17 16:12 01/09/17 16:12 01/09/17 16:12 01/09/17 18:27 01/09/17 16:12 Intake and Output: 01/09/17 01/10/17 18:59 06:59 Intake Total 550 Output Total 250 Balance 300 - Medications Medications: Current Medications Acetaminophen (Tylenol 325mg Tab) 650 mg PO Q4H PRN PRN Reason: Pain, Mild (1-3) Albuterol/Ipratropium (Duoneb 3 Mg/0.5 Mg (3 Ml) Ud) 3 ml IH RQ6 PRN PRN Reason: Shortness of Breath Famotidine (Pepcid) 20 mg PO DAILY [facility] Last Admin: 01/09/17 10:48 Dose: 20 mg Ferric Sodium Gluconate Complex (Ferrlecit) 125 mg IVPB DAILY [facility] Stop: 01/15/17 10:01 Last Admin: 01/09/17 10:45 Dose: 125 mg Folic Acid (Folic Acid) 2 mg PO DAILY [facility] Last Admin: 01/09/17 10:48 Dose: 2 mg Furosemide (Lasix) 20 mg IVP BID [facility] Last Admin: 01/09/17 18:27 Dose: 20 mg Moxifloxacin HCl (Avelox Iv 400mg/250ml Ns) 250 mls @ 167 mls/hr IVPB Q24H [facility] Last Admin: 01/09/17 12:00 Dose: 167 mls/hr Lactulose (Enulose) 20 gm PO DAILY PRN PRN Reason: Constipation Magnesium Hydroxide (Milk Of Magnesia) 30 ml PO DAILY PRN PRN Reason: Constipation Pregabalin (Lyrica) 50 mg PO BID [facility] Last Admin: 01/09/17 18:26 Dose: 50 mg Pyridoxine HCl (Vitamin B6) 100 mg PO DAILY [facility] Last Admin: 01/09/17 10:48 Dose: 100 mg - Labs Labs: 01/08/17 06:06 01/08/17 06:06 PT 16.7 SECONDS (9.7-12.2) H 01/08/17 06:06 INR 1.5 01/08/17 06:06 - Constitutional Appears: Chronically Ill - Head Exam Head Exam: NORMAL INSPECTION - Eye Exam Eye Exam: Normal appearance - ENT Exam ENT Exam: Normal Exam - Respiratory Exam Respiratory Exam: Clear to Ausculation Bilateral, Rales, Rhonchi. absent: Decreased Breath Sounds - Cardiovascular Exam Cardiovascular Exam: REGULAR RHYTHM, RRR, +S1, +S2. absent: Gallop, Rubs - GI/Abdominal Exam GI & Abdominal Exam: Soft, Normal Bowel Sounds. absent: Tenderness - Extremities Exam Extremities Exam: Pedal Edema. absent: Calf Tenderness, Normal Inspection - Back Exam Back Exam: NORMAL INSPECTION - Psychiatric Exam Psychiatric exam: Normal Affect, Normal Mood - Skin Skin Exam: Normal Color, Warm Assessment and Plan - Assessment and Plan (Free Text) Assessment: Pancytopenia 01/09: Need to follow up Hospic care, started Lyrica for Neuropathy. 01/08: Patient denied blood tranfusions for caodaism reasons, have given hims procrit IV, Have consulted pallative care, patient and his guardain having agreed to pallative care. Have cancelled futher test and will given comfort measures only. Will continue with IV medication for now. Have also consulted pallative care as well. Macrocytic anemia Hgb 6.1, WBC 2.2, Platelets 92 MCV 103.6 Patient refusing blood products for caodaism reasons Heme/Onc consult - Dr. Marti - help appreciated B12 >1000, Folate >20 F/U ferritin, immunofixation, kappa/lambda, protein electrophoresis GI consult - Dr. Garcia - f/u recommendations Stool occult blood negative x1 F/U repeat stool occult blood Pleural Effusions CXR 01/06/17- large right pleural effusion, small left pleural effusion with scattered opacities Albumin IVPB daily x3 days Lasix 20mg IVP BID F/U ECHO Pulmonology consult - Dr. Amador - f/u recommendations Pneumonia CXR - see above Afebrile, WBC 2.2 with neutrophil count of 1.5 Avelox 400mg IVPB daily started 01/07/17 Atrial fibrillation EKG 01/06/17 - rate controlled AFib Cardio consult - Dr. Lerner - help appreciated No anticoagulation for now as Hgb and platelets are low F/U ECHO Transaminitis AST 67, ALT 53, ALP 363 F/U GGT GI consult - Dr. Garcia - f/u recommendations Prophylaxis Pepcid 20mg PO daily [facility]
--- NOTE | 2017-01-09 21:53 | CP.PCM.PN ---
Subjective - Date & Time of Evaluation Date of Evaluation: 01/09/17 Time of Evaluation: 13:00 - Subjective Subjective: Patient seen and evaluated Severely dilated Right heart Severe Pulmonary HTN Anasarca and biventricular failure Severe anaemia Overall very poor prognosis Patient DNR/DNI Objective - Vital Signs/Intake and Output Vital Signs (last 24 hours): Temp Pulse Resp BP Pulse Ox 97.2 F L 112 H 22 100/58 L 95 01/09/17 16:12 01/09/17 16:12 01/09/17 16:12 01/09/17 18:27 01/09/17 16:12 Intake and Output: 01/09/17 01/10/17 18:59 06:59 Intake Total 550 Output Total 250 Balance 300 - Medications Medications: Current Medications Acetaminophen (Tylenol 325mg Tab) 650 mg PO Q4H PRN PRN Reason: Pain, Mild (1-3) Albuterol/Ipratropium (Duoneb 3 Mg/0.5 Mg (3 Ml) Ud) 3 ml IH RQ6 PRN PRN Reason: Shortness of Breath Famotidine (Pepcid) 20 mg PO DAILY [facility] Last Admin: 01/09/17 10:48 Dose: 20 mg Ferric Sodium Gluconate Complex (Ferrlecit) 125 mg IVPB DAILY [facility] Stop: 01/15/17 10:01 Last Admin: 01/09/17 10:45 Dose: 125 mg Folic Acid (Folic Acid) 2 mg PO DAILY [facility] Last Admin: 01/09/17 10:48 Dose: 2 mg Furosemide (Lasix) 20 mg IVP BID [facility] Last Admin: 01/09/17 18:27 Dose: 20 mg Moxifloxacin HCl (Avelox Iv 400mg/250ml Ns) 250 mls @ 167 mls/hr IVPB Q24H [facility] Last Admin: 01/09/17 12:00 Dose: 167 mls/hr Lactulose (Enulose) 20 gm PO DAILY PRN PRN Reason: Constipation Magnesium Hydroxide (Milk Of Magnesia) 30 ml PO DAILY PRN PRN Reason: Constipation Pregabalin (Lyrica) 50 mg PO BID [facility] Last Admin: 01/09/17 18:26 Dose: 50 mg Pyridoxine HCl (Vitamin B6) 100 mg PO DAILY [facility] Last Admin: 01/09/17 10:48 Dose: 100 mg - Labs Labs: 01/08/17 06:06 01/08/17 06:06 PT 16.7 SECONDS (9.7-12.2) H 01/08/17 06:06 INR 1.5 01/08/17 06:06
--- NOTE | 2017-01-09 22:08 | CP.PCM.PN ---
Subjective - Date & Time of Evaluation Date of Evaluation: 01/09/17 Time of Evaluation: 17:10 - Subjective Subjective: Has pain in feet Objective - Vital Signs/Intake and Output Vital Signs (last 24 hours): Temp Pulse Resp BP Pulse Ox 97.2 F L 112 H 22 100/58 L 95 01/09/17 16:12 01/09/17 16:12 01/09/17 16:12 01/09/17 18:27 01/09/17 16:12 Intake and Output: 01/09/17 01/10/17 18:59 06:59 Intake Total 550 Output Total 250 Balance 300 - Medications Medications: Current Medications Acetaminophen (Tylenol 325mg Tab) 650 mg PO Q4H PRN PRN Reason: Pain, Mild (1-3) Albuterol/Ipratropium (Duoneb 3 Mg/0.5 Mg (3 Ml) Ud) 3 ml IH RQ6 PRN PRN Reason: Shortness of Breath Famotidine (Pepcid) 20 mg PO DAILY [facility] Last Admin: 01/09/17 10:48 Dose: 20 mg Ferric Sodium Gluconate Complex (Ferrlecit) 125 mg IVPB DAILY [facility] Stop: 01/15/17 10:01 Last Admin: 01/09/17 10:45 Dose: 125 mg Folic Acid (Folic Acid) 2 mg PO DAILY [facility] Last Admin: 01/09/17 10:48 Dose: 2 mg Furosemide (Lasix) 20 mg IVP BID [facility] Last Admin: 01/09/17 18:27 Dose: 20 mg Moxifloxacin HCl (Avelox Iv 400mg/250ml Ns) 250 mls @ 167 mls/hr IVPB Q24H [facility] Last Admin: 01/09/17 12:00 Dose: 167 mls/hr Lactulose (Enulose) 20 gm PO DAILY PRN PRN Reason: Constipation Magnesium Hydroxide (Milk Of Magnesia) 30 ml PO DAILY PRN PRN Reason: Constipation Pregabalin (Lyrica) 50 mg PO BID [facility] Last Admin: 01/09/17 18:26 Dose: 50 mg Pyridoxine HCl (Vitamin B6) 100 mg PO DAILY [facility] Last Admin: 01/09/17 10:48 Dose: 100 mg - Labs Labs: 01/08/17 06:06 01/08/17 06:06 PT 16.7 SECONDS (9.7-12.2) H 01/08/17 06:06 INR 1.5 01/08/17 06:06 - Head Exam Head Exam: ATRAUMATIC - Eye Exam Eye Exam: Normal appearance - ENT Exam ENT Exam: Mucous Membranes Dry - Respiratory Exam Respiratory Exam: NORMAL BREATHING PATTERN - Cardiovascular Exam Cardiovascular Exam: +S1, +S2 - GI/Abdominal Exam GI & Abdominal Exam: Normal Bowel Sounds - Extremities Exam Extremities Exam: Pedal Edema Assessment and Plan (1) Pancytopenia Assessment & Plan: supportive care Jehovahs witness; deferral of blood products s/p iron, b12, procrit minimize blood draws Status: Acute (2) Elevated serum globulin level Assessment & Plan: monoclonal protein w/u sent Status: Acute
--- NOTE | 2017-01-10 09:04 | CP.PCM.PN ---
Subjective - Date & Time of Evaluation Date of Evaluation: 01/10/17 Time of Evaluation: 08:15 - Subjective Subjective: no changes follow up labs Objective - Vital Signs/Intake and Output Vital Signs (last 24 hours): Temp Pulse Resp BP Pulse Ox 97.5 F L 92 H 18 93/54 L 98 01/10/17 07:00 01/10/17 08:14 01/10/17 07:00 01/10/17 07:00 01/10/17 07:00 Intake and Output: 01/10/17 01/10/17 06:59 18:59 Intake Total 100 Output Total 700 Balance -600 - Medications Medications: Current Medications Acetaminophen (Tylenol 325mg Tab) 650 mg PO Q4H PRN PRN Reason: Pain, Mild (1-3) Albuterol/Ipratropium (Duoneb 3 Mg/0.5 Mg (3 Ml) Ud) 3 ml IH RQ6 PRN PRN Reason: Shortness of Breath Famotidine (Pepcid) 20 mg PO DAILY [facility] Last Admin: 01/09/17 10:48 Dose: 20 mg Ferric Sodium Gluconate Complex (Ferrlecit) 125 mg IVPB DAILY [facility] Stop: 01/15/17 10:01 Last Admin: 01/09/17 10:45 Dose: 125 mg Folic Acid (Folic Acid) 2 mg PO DAILY [facility] Last Admin: 01/09/17 10:48 Dose: 2 mg Furosemide (Lasix) 20 mg IVP BID [facility] Last Admin: 01/09/17 18:27 Dose: 20 mg Moxifloxacin HCl (Avelox Iv 400mg/250ml Ns) 250 mls @ 167 mls/hr IVPB Q24H [facility] Last Admin: 01/09/17 12:00 Dose: 167 mls/hr Lactulose (Enulose) 20 gm PO DAILY PRN PRN Reason: Constipation Magnesium Hydroxide (Milk Of Magnesia) 30 ml PO DAILY PRN PRN Reason: Constipation Pregabalin (Lyrica) 50 mg PO BID [facility] Last Admin: 01/09/17 18:26 Dose: 50 mg Pyridoxine HCl (Vitamin B6) 100 mg PO DAILY [facility] Last Admin: 01/09/17 10:48 Dose: 100 mg - Labs Labs: 01/08/17 06:06 01/08/17 06:06 PT 16.7 SECONDS (9.7-12.2) H 01/08/17 06:06 INR 1.5 01/08/17 06:06 - Constitutional Appears: Non-toxic - Head Exam Head Exam: ATRAUMATIC, NORMOCEPHALIC - Eye Exam Eye Exam: Normal appearance - ENT Exam ENT Exam: Mucous Membranes Moist - Respiratory Exam Respiratory Exam: NORMAL BREATHING PATTERN - Cardiovascular Exam Cardiovascular Exam: REGULAR RHYTHM - GI/Abdominal Exam GI & Abdominal Exam: Normal Bowel Sounds - Exam External exam: NORMAL EXTERNAL EXAM - Extremities Exam Extremities Exam: Normal Inspection - Neurological Exam Neurological Exam: Awake - Psychiatric Exam Psychiatric exam: Normal Affect - Skin Skin Exam: Dry Assessment and Plan (1) Pancytopenia Assessment & Plan: Follow up labs no chest pain Status: Acute
[2017-01-10] MEDS: Ferric Sodium Gluconat Complex 62.5 mg/5 ml Vial IVPB SCH (10:15)
[2017-01-10] MEDS: Pyridoxine 100 mg Tab PO SCH (10:16)
[2017-01-10] MEDS: Moxifloxacin IV 400mg/250ml NS 250 ML IVPB SCH (11:23)
[2017-01-10 16:16] LABS: KAPPA/LAMBDA FREE RATIO 0.31 (0.26-1.65)
--- NOTE | 2017-01-10 21:13 | CP.PCM.PN ---
Subjective - Date & Time of Evaluation Date of Evaluation: 01/10/17 Time of Evaluation: 17:00 - Subjective Subjective: No complaints, swollen Objective - Vital Signs/Intake and Output Vital Signs (last 24 hours): Temp Pulse Resp BP Pulse Ox 98.1 F 94 H 20 106/78 98 01/10/17 15:27 01/10/17 15:27 01/10/17 15:27 01/10/17 17:43 01/10/17 15:27 Intake and Output: 01/10/17 01/11/17 18:59 06:59 Intake Total 120 Output Total 100 Balance 20 - Medications Medications: Current Medications Acetaminophen (Tylenol 325mg Tab) 650 mg PO Q4H PRN PRN Reason: Pain, Mild (1-3) Albuterol/Ipratropium (Duoneb 3 Mg/0.5 Mg (3 Ml) Ud) 3 ml IH RQ6 PRN PRN Reason: Shortness of Breath Epoetin Leland (Procrit) 20,000 unit SC ONCE ONE Stop: 01/11/17 09:01 Famotidine (Pepcid) 20 mg PO DAILY [facility] Last Admin: 01/10/17 10:16 Dose: 20 mg Ferric Sodium Gluconate Complex (Ferrlecit) 125 mg IVPB DAILY [facility] Stop: 01/15/17 10:01 Last Admin: 01/10/17 10:15 Dose: 125 mg Folic Acid (Folic Acid) 2 mg PO DAILY [facility] Last Admin: 01/10/17 10:16 Dose: 2 mg Furosemide (Lasix) 20 mg IVP BID [facility] Last Admin: 01/10/17 17:43 Dose: 20 mg Moxifloxacin HCl (Avelox Iv 400mg/250ml Ns) 250 mls @ 167 mls/hr IVPB Q24H [facility] Last Admin: 01/10/17 11:23 Dose: 167 mls/hr Lactulose (Enulose) 20 gm PO DAILY PRN PRN Reason: Constipation Magnesium Hydroxide (Milk Of Magnesia) 30 ml PO DAILY PRN PRN Reason: Constipation Pregabalin (Lyrica) 50 mg PO BID [facility] Last Admin: 01/10/17 17:42 Dose: 50 mg Pyridoxine HCl (Vitamin B6) 100 mg PO DAILY [facility] Last Admin: 01/10/17 10:16 Dose: 100 mg - Labs Labs: 01/08/17 06:06 01/08/17 06:06 PT 16.7 SECONDS (9.7-12.2) H 01/08/17 06:06 INR 1.5 01/08/17 06:06 - Head Exam Head Exam: ATRAUMATIC - Eye Exam Eye Exam: Normal appearance - ENT Exam ENT Exam: Mucous Membranes Dry - Respiratory Exam Respiratory Exam: NORMAL BREATHING PATTERN - Cardiovascular Exam Cardiovascular Exam: +S1, +S2 - GI/Abdominal Exam GI & Abdominal Exam: Normal Bowel Sounds - Extremities Exam Extremities Exam: Pedal Edema Assessment and Plan (1) Pancytopenia Assessment & Plan: supportive care Jehovahs witness; deferred blood products s/p iron, b12, folic acid, redose procrit minimize blood draws Status: Acute (2) Elevated serum globulin level Status: Acute
--- NOTE | 2017-01-10 22:30 | CP.PCM.PN ---
Subjective - Date & Time of Evaluation Date of Evaluation: 01/10/17 Time of Evaluation: 16:00 - Subjective Subjective: Patient offers no complaints Some dyspnea, No chest pain Pancytopenia, Jehowah witness DNR/DNI Objective - Vital Signs/Intake and Output Vital Signs (last 24 hours): Temp Pulse Resp BP Pulse Ox 98.1 F 94 H 20 106/78 98 01/10/17 15:27 01/10/17 15:27 01/10/17 15:27 01/10/17 17:43 01/10/17 15:27 Intake and Output: 01/10/17 01/11/17 18:59 06:59 Intake Total 120 Output Total 100 Balance 20 - Medications Medications: Current Medications Acetaminophen (Tylenol 325mg Tab) 650 mg PO Q4H PRN PRN Reason: Pain, Mild (1-3) Albuterol/Ipratropium (Duoneb 3 Mg/0.5 Mg (3 Ml) Ud) 3 ml IH RQ6 PRN PRN Reason: Shortness of Breath Epoetin Leland (Procrit) 20,000 unit SC ONCE ONE Stop: 01/11/17 09:01 Famotidine (Pepcid) 20 mg PO DAILY [facility] Last Admin: 01/10/17 10:16 Dose: 20 mg Ferric Sodium Gluconate Complex (Ferrlecit) 125 mg IVPB DAILY [facility] Stop: 01/15/17 10:01 Last Admin: 01/10/17 10:15 Dose: 125 mg Folic Acid (Folic Acid) 2 mg PO DAILY [facility] Last Admin: 01/10/17 10:16 Dose: 2 mg Furosemide (Lasix) 20 mg IVP BID [facility] Last Admin: 01/10/17 17:43 Dose: 20 mg Moxifloxacin HCl (Avelox Iv 400mg/250ml Ns) 250 mls @ 167 mls/hr IVPB Q24H [facility] Last Admin: 01/10/17 11:23 Dose: 167 mls/hr Lactulose (Enulose) 20 gm PO DAILY PRN PRN Reason: Constipation Magnesium Hydroxide (Milk Of Magnesia) 30 ml PO DAILY PRN PRN Reason: Constipation Pregabalin (Lyrica) 50 mg PO BID [facility] Last Admin: 01/10/17 17:42 Dose: 50 mg Pyridoxine HCl (Vitamin B6) 100 mg PO DAILY [facility] Last Admin: 01/10/17 10:16 Dose: 100 mg - Labs Labs: 01/08/17 06:06 01/08/17 06:06 PT 16.7 SECONDS (9.7-12.2) H 01/08/17 06:06 INR 1.5 01/08/17 06:06
[2017-01-11] MEDS ORDERED: Epoetin Alfa Dialysis 20000 UNIT/ML Inj SC ONE ×2 (09:00→10:45)
[2017-01-11] MEDS: Ferric Sodium Gluconat Complex 62.5 mg/5 ml Vial IVPB SCH (10:15)
[2017-01-11] MEDS: Pyridoxine 100 mg Tab PO SCH (10:16)
[2017-01-11] MEDS: Moxifloxacin IV 400mg/250ml NS 250 ML IVPB SCH (11:27)
--- NOTE | 2017-01-11 14:22 | CP.PCM.PN ---
Subjective - Date & Time of Evaluation Date of Evaluation: 01/11/17 Time of Evaluation: 14:00 - Subjective Subjective: no palpitations no complaints Objective - Vital Signs/Intake and Output Vital Signs (last 24 hours): Temp Pulse Resp BP Pulse Ox 97.4 F L 92 H 18 90/60 L 100 01/11/17 08:23 01/11/17 11:15 01/11/17 08:23 01/11/17 11:00 01/11/17 11:15 Intake and Output: 01/11/17 01/11/17 06:59 18:59 Intake Total 120 120 Output Total 351 Balance -231 120 - Medications Medications: Current Medications Acetaminophen (Tylenol 325mg Tab) 650 mg PO Q4H PRN PRN Reason: Pain, Mild (1-3) Albuterol/Ipratropium (Duoneb 3 Mg/0.5 Mg (3 Ml) Ud) 3 ml IH RQ6 PRN PRN Reason: Shortness of Breath Famotidine (Pepcid) 20 mg PO DAILY [facility] Last Admin: 01/11/17 10:15 Dose: 20 mg Ferric Sodium Gluconate Complex (Ferrlecit) 125 mg IVPB DAILY [facility] Stop: 01/15/17 10:01 Last Admin: 01/11/17 10:15 Dose: 125 mg Folic Acid (Folic Acid) 2 mg PO DAILY [facility] Last Admin: 01/11/17 10:15 Dose: 2 mg Furosemide (Lasix) 20 mg IVP BID [facility] Last Admin: 01/10/17 17:43 Dose: 20 mg Moxifloxacin HCl (Avelox Iv 400mg/250ml Ns) 250 mls @ 167 mls/hr IVPB Q24H [facility] Last Admin: 01/11/17 11:27 Dose: 167 mls/hr Lactulose (Enulose) 20 gm PO DAILY PRN PRN Reason: Constipation Magnesium Hydroxide (Milk Of Magnesia) 30 ml PO DAILY PRN PRN Reason: Constipation Pregabalin (Lyrica) 50 mg PO BID [facility] Last Admin: 01/11/17 10:15 Dose: 50 mg Pyridoxine HCl (Vitamin B6) 100 mg PO DAILY [facility] Last Admin: 01/11/17 10:16 Dose: 100 mg - Labs Labs: 01/08/17 06:06 01/08/17 06:06 PT 16.7 SECONDS (9.7-12.2) H 01/08/17 06:06 INR 1.5 01/08/17 06:06 - Constitutional Appears: Non-toxic - Head Exam Head Exam: ATRAUMATIC, NORMOCEPHALIC - Eye Exam Eye Exam: Normal appearance - ENT Exam ENT Exam: Mucous Membranes Moist - Respiratory Exam Respiratory Exam: Clear to Ausculation Bilateral, NORMAL BREATHING PATTERN - Cardiovascular Exam Cardiovascular Exam: REGULAR RHYTHM - GI/Abdominal Exam GI & Abdominal Exam: Normal Bowel Sounds - Exam External exam: NORMAL EXTERNAL EXAM - Extremities Exam Extremities Exam: Normal Inspection - Neurological Exam Neurological Exam: Awake - Psychiatric Exam Psychiatric exam: Normal Mood - Skin Skin Exam: Intact Assessment and Plan (1) Elevated serum globulin level Assessment & Plan: Pt no complaint, no VT Hematology on Board pt Jehovah witness Status: Acute (2) Pancytopenia Status: Acute
[2017-01-11 15:31] VITALS: RESP 20
--- NOTE | 2017-01-11 20:09 | CP.PCM.PN ---
Subjective - Date & Time of Evaluation Date of Evaluation: 01/11/17 Time of Evaluation: 07:10 - Subjective Subjective: Patient remains anemic Jehowah's witness DNR/DNI Objective - Vital Signs/Intake and Output Vital Signs (last 24 hours): Temp Pulse Resp BP Pulse Ox 97.9 F 91 H 20 90/56 L 100 01/11/17 15:23 01/11/17 16:00 01/11/17 15:23 01/11/17 15:23 01/11/17 15:23 Intake and Output: 01/11/17 01/12/17 18:59 06:59 Intake Total 120 Output Total 50 Balance 70 - Medications Medications: Current Medications Acetaminophen (Tylenol 325mg Tab) 650 mg PO Q4H PRN PRN Reason: Pain, Mild (1-3) Albuterol/Ipratropium (Duoneb 3 Mg/0.5 Mg (3 Ml) Ud) 3 ml IH RQ6 PRN PRN Reason: Shortness of Breath Famotidine (Pepcid) 20 mg PO DAILY [facility] Last Admin: 01/11/17 10:15 Dose: 20 mg Ferric Sodium Gluconate Complex (Ferrlecit) 125 mg IVPB DAILY [facility] Stop: 01/15/17 10:01 Last Admin: 01/11/17 10:15 Dose: 125 mg Folic Acid (Folic Acid) 2 mg PO DAILY [facility] Last Admin: 01/11/17 10:15 Dose: 2 mg Furosemide (Lasix) 20 mg IVP BID [facility] Last Admin: 01/11/17 09:45 Dose: Not Given Moxifloxacin HCl (Avelox Iv 400mg/250ml Ns) 250 mls @ 167 mls/hr IVPB Q24H [facility] Last Admin: 01/11/17 11:27 Dose: 167 mls/hr Lactulose (Enulose) 20 gm PO DAILY PRN PRN Reason: Constipation Magnesium Hydroxide (Milk Of Magnesia) 30 ml PO DAILY PRN PRN Reason: Constipation Pregabalin (Lyrica) 50 mg PO BID [facility] Last Admin: 01/11/17 10:15 Dose: 50 mg Pyridoxine HCl (Vitamin B6) 100 mg PO DAILY [facility] Last Admin: 01/11/17 10:16 Dose: 100 mg - Labs Labs: 01/08/17 06:06 01/08/17 06:06 PT 16.7 SECONDS (9.7-12.2) H 01/08/17 06:06 INR 1.5 01/08/17 06:06
--- NOTE | 2017-01-12 10:08 | CP.PCM.PN ---
Subjective - Date & Time of Evaluation Date of Evaluation: 01/19/17 Time of Evaluation: 07:20 - Subjective Subjective: Dr. Lucas service: Patient seen and examined in room. Patient reports having pain and is not eating very well. He also say she fells very swollen. Objective - Vital Signs/Intake and Output Vital Signs (last 24 hours): Temp Pulse Resp BP Pulse Ox 98.3 F 88 20 118/66 100 01/12/17 07:00 01/12/17 08:56 01/12/17 07:00 01/12/17 07:00 01/12/17 07:00 Intake and Output: 01/12/17 01/12/17 06:59 18:59 Intake Total 120 Output Total 200 Balance -80 - Medications Medications: Current Medications Acetaminophen (Tylenol 325mg Tab) 650 mg PO Q4H PRN PRN Reason: Pain, Mild (1-3) Famotidine (Pepcid) 20 mg PO DAILY [facility] Last Admin: 01/11/17 10:15 Dose: 20 mg Ferric Sodium Gluconate Complex (Ferrlecit) 125 mg IVPB DAILY [facility] Stop: 01/15/17 10:01 Last Admin: 01/11/17 10:15 Dose: 125 mg Folic Acid (Folic Acid) 2 mg PO DAILY [facility] Last Admin: 01/11/17 10:15 Dose: 2 mg Furosemide (Lasix) 20 mg IVP BID [facility] Last Admin: 01/11/17 18:00 Dose: Not Given Moxifloxacin HCl (Avelox Iv 400mg/250ml Ns) 250 mls @ 167 mls/hr IVPB Q24H [facility] Last Admin: 01/11/17 11:27 Dose: 167 mls/hr Lactulose (Enulose) 20 gm PO DAILY PRN PRN Reason: Constipation Magnesium Hydroxide (Milk Of Magnesia) 30 ml PO DAILY PRN PRN Reason: Constipation Pregabalin (Lyrica) 50 mg PO BID [facility] Last Admin: 01/11/17 22:01 Dose: 50 mg Pyridoxine HCl (Vitamin B6) 100 mg PO DAILY [facility] Last Admin: 01/11/17 10:16 Dose: 100 mg - Labs Labs: 01/08/17 06:06 01/08/17 06:06 PT 16.7 SECONDS (9.7-12.2) H 01/08/17 06:06 INR 1.5 01/08/17 06:06 - Constitutional Appears: Chronically Ill - Head Exam Head Exam: NORMAL INSPECTION - Eye Exam Eye Exam: Normal appearance Pupil Exam: NORMAL ACCOMODATION Additional comments: junctival pallor - Respiratory Exam Respiratory Exam: Clear to Ausculation Bilateral. absent: Rhonchi, Wheezes - Cardiovascular Exam Cardiovascular Exam: REGULAR RHYTHM, RRR - Extremities Exam Additional comments: edemtous all over Assessment and Plan - Assessment and Plan (Free Text) Assessment: Spoke with hospice manager social responsibility he said patient can only have home hospice but son cannot take care of him at home. home economics extension worker says he is approved to go back to the assisted as [facility]. He is pending hospice care when his medicare is approved. He was transferred today. Pancytopenia 01/09: Need to follow up Hospic care, started Lyrica for Neuropathy. 01/08: Patient denied blood tranfusions for mandaen reasons, have given hims procrit IV, Have consulted pallative care, patient and his guardain having agreed to pallative care. Have cancelled futher test and will given comfort measures only. Will continue with IV medication for now. Have also consulted pallative care as well. Macrocytic anemia Hgb 6.1, WBC 2.2, Platelets 92 MCV 103.6 Patient refusing blood products for mandaen reasons Heme/Onc consult - Dr. Marti - help appreciated B12 >1000, Folate >20 F/U ferritin, immunofixation, kappa/lambda, protein electrophoresis GI consult - Dr. Garcia - f/u recommendations Stool occult blood negative x1 F/U repeat stool occult blood Pleural Effusions CXR 01/06/17- large right pleural effusion, small left pleural effusion with scattered opacities Albumin IVPB daily x3 days Lasix 20mg IVP BID F/U ECHO Pulmonology consult - Dr. Amador - f/u recommendations Pneumonia CXR - see above Afebrile, WBC 2.2 with neutrophil count of 1.5 Avelox 400mg IVPB daily started 01/07/17 Atrial fibrillation EKG 01/06/17 - rate controlled AFib Cardio consult - Dr. Lerner - help appreciated No anticoagulation for now as Hgb and platelets are low F/U ECHO Transaminitis AST 67, ALT 53, ALP 363 F/U GGT GI consult - Dr. Garcia - f/u recommendations Prophylaxis Pepcid 20mg PO daily Stockings
--- NOTE | 2017-01-12 10:23 | PN ---
DATE: 01/10/2017 The patient is extremely weak, fatigued, tired. Continue support. Physical therapy ordered. Kelle blanco, unfortunately, the prognosis is very poor for this gentleman in view of severe anemia and hypoalbu minemia. infusion. Mian Brennan MD cc: [id number] TT: 01/10/2017 20:00:59 Confirmation # [id number] Dictation # [id number] ln 01/12/2017 09:22:51
[2017-01-12] MEDS: Pyridoxine 100 mg Tab PO SCH (10:51)
[2017-01-12] MEDS: Ferric Sodium Gluconat Complex 62.5 mg/5 ml Vial IVPB SCH (10:52)
--- NOTE | 2017-01-12 11:29 | CP.PCM.PN ---
<Brice Ramos - Last Filed: 01/12/17 13:56> Subjective - Date & Time of Evaluation Date of Evaluation: 01/12/17 Time of Evaluation: 11:30 - Subjective Subjective: Cardiology Note- Dr. Harvey' service Patient was seen and examined at bedside. Patient reports no acute complaints at the moment, he appears comfortable and in no acute distress. No events overnight, per nursing. Objective - Vital Signs/Intake and Output Vital Signs (last 24 hours): Temp Pulse Resp BP Pulse Ox 98.3 F 88 20 99/62 L 100 01/12/17 07:00 01/12/17 08:56 01/12/17 07:00 01/12/17 10:52 01/12/17 07:00 Intake and Output: 01/12/17 01/12/17 06:59 18:59 Intake Total 120 Output Total 200 Balance -80 - Medications Medications: Current Medications Acetaminophen (Tylenol 325mg Tab) 650 mg PO Q4H PRN PRN Reason: Pain, Mild (1-3) Famotidine (Pepcid) 20 mg PO DAILY [facility] Last Admin: 01/12/17 10:51 Dose: 20 mg Ferric Sodium Gluconate Complex (Ferrlecit) 125 mg IVPB DAILY [facility] Stop: 01/15/17 10:01 Last Admin: 01/12/17 10:52 Dose: 125 mg Folic Acid (Folic Acid) 2 mg PO DAILY [facility] Last Admin: 01/12/17 10:51 Dose: 2 mg Furosemide (Lasix) 20 mg IVP BID [facility] Last Admin: 01/12/17 10:52 Dose: 20 mg Moxifloxacin HCl (Avelox Iv 400mg/250ml Ns) 250 mls @ 167 mls/hr IVPB Q24H [facility] Last Admin: 01/11/17 11:27 Dose: 167 mls/hr Lactulose (Enulose) 20 gm PO DAILY PRN PRN Reason: Constipation Magnesium Hydroxide (Milk Of Magnesia) 30 ml PO DAILY PRN PRN Reason: Constipation Pregabalin (Lyrica) 50 mg PO BID [facility] Last Admin: 01/12/17 10:51 Dose: 50 mg Pyridoxine HCl (Vitamin B6) 100 mg PO DAILY [facility] Last Admin: 01/12/17 10:51 Dose: 100 mg - Labs Labs: 01/08/17 06:06 01/08/17 06:06 PT 16.7 SECONDS (9.7-12.2) H 01/08/17 06:06 INR 1.5 01/08/17 06:06 - Constitutional Appears: Non-toxic, No Acute Distress - Head Exam Head Exam: ATRAUMATIC, NORMAL INSPECTION, NORMOCEPHALIC - Eye Exam Pupil Exam: NORMAL ACCOMODATION - ENT Exam ENT Exam: Mucous Membranes Moist - Respiratory Exam Respiratory Exam: Clear to Ausculation Bilateral, NORMAL BREATHING PATTERN. absent: Prolonged Expiratory Phase, Rales, Rhonchi, Wheezes - Cardiovascular Exam Cardiovascular Exam: REGULAR RHYTHM, +S1, +S2 - GI/Abdominal Exam GI & Abdominal Exam: Soft, Normal Bowel Sounds. absent: Tenderness, Diminished Bowel Sounds, Hypoactive Bowel Sounds - Neurological Exam Neurological Exam: Alert, Awake, Oriented x3 - Psychiatric Exam Psychiatric exam: Normal Affect, Normal Mood - Skin Skin Exam: Dry, Intact, Normal Color, Warm Assessment and Plan - Assessment and Plan (Free Text) Assessment: Non sustained Ventricular Tachycardia Reviewed tele, 01/08/17- 10 run beat of V tach Likely due to demand ischemia from severe anemia Continue Lasix 20mg IVP BID Case and plan discussed with Dr. Harvey <Jayme Harvey - Last Filed: 01/12/17 19:57> Objective - Vital Signs/Intake and Output Vital Signs (last 24 hours): Temp Pulse Resp BP Pulse Ox 97.8 F 85 20 99/60 L 97 01/12/17 15:00 01/12/17 15:00 01/12/17 15:00 01/12/17 15:00 01/12/17 15:00 Intake and Output: 01/12/17 01/13/17 18:59 06:59 Intake Total 650 Output Total 200 Balance 450 - Labs Labs: 01/08/17 06:06 01/08/17 06:06 PT 16.7 SECONDS (9.7-12.2) H 01/08/17 06:06 INR 1.5 01/08/17 06:06 Attending/Attestation - Attestation I have personally seen and examined this patient.: Yes I have fully participated in the care of the patient.: Yes I have reviewed all pertinent clinical information, including history, physical exam and plan: Yes Notes (Text): 01/12/17 19:57 Pt no events bp stable
[2017-01-12] MEDS: Moxifloxacin IV 400mg/250ml NS 250 ML IVPB SCH (12:00)
--- NOTE | 2017-01-12 13:35 | PCM.HF ---
Heart Failure Core Measure - Heart Failure Ejection Fraction: 40 % or Greater (LVEF 78 %) EL Inhibitor Prescribed: No Contraindication/Reason for not providing: LVEF >40% Beta-Gume Prescribed: None Contraindication/Reason for not providing: HOSPICE CARE Angiotensin II Receptor Gume Prescribed: No Contraindication/Reason for not providing: LVEF >40% AnticoagulationTherapy for Atrial Fibrillation/Atrialflutter: No Contraindication/Reason for not providing: NO AFIB Aldosterone Antagonist Prescribed: No Contraindication/Reason for not providing: RENAL DYSFUNCTION Hydralazine Nitrate Prescribed: No Contraindication/Reason for not providing: HOSPICE CARE Implantable Cardioverter Defibrillator Therapy: No Contraindication/Reason for not providing: LVEF >40% Cardiac Resynchronization Therapy Prescribed: No Contraindication/Reason for not providing: LVEF >40% - Follow up Will be discharged to: Nursing Home Facility Follow Up Date (must be within 7 days from discharge): 01/15/17 Follow Up Time: 09:00
[2017-01-12 15:46] VITALS: BP 99/60; PULSE 85; TEMP 97.8
[2017-01-12 15:54] VITALS: O2SAT 97
--- NOTE | 2017-01-16 07:24 | DS ---
The patient admitted to the hospital complaining of weakness, fatigue, tiredness, severe anemia. The patient is a Oriental orthodox. Hypoalbuminemia with anasarca. The patient refused blood transfusi on. The patient received IV iron, Procrit, albumin, diuresis, physical therapy. Very weak. Palliat roberto care consult called. Family refused hospice. Supportive care, discharge to follow as outpatient . Mian Brennan MD cc: [id number] TT: 01/15/2017 11:43:56 tn
== END 2017-01-12 17:35 | DRG 291 ==
LOC: C.ER 15:28 → C.9E 18:16 → C.6T 19:46
PROVIDERS: ADMIT Internal Medicine Pulmonary Disease; ATTEND Internal Medicine Pulmonary Disease
DX: I11.0 Hypertensive heart disease with heart failure (principal); D61.818 Other pancytopenia; J18.9 Pneumonia, unspecified organism; I47.2 Ventricular tachycardia; L89.159 Pressure ulcer of sacral region, unspecified stage; I27.0 Primary pulmonary hypertension; I24.8 Other forms of acute ischemic heart disease; I50.1 Left ventricular failure, unspecified; I27.2 Other secondary pulmonary hypertension; E88.09 Other disorders of plasma-protein metabolism, not elsewhere classified; K74.60 Unspecified cirrhosis of liver; G62.9 Polyneuropathy, unspecified; D53.9 Nutritional anemia, unspecified; I48.91 Unspecified atrial fibrillation; K76.1 Chronic passive congestion of liver; Z66 Do not resuscitate; E11.9 Type 2 diabetes mellitus without complications; Z53.1 Procedure and treatment not carried out because of patient's decision for reasons of belief and group pressure; Z51.5 Encounter for palliative care; Z86.73 Personal history of transient ischemic attack (TIA), and cerebral infarction without residual deficits; Z79.01 Long term (current) use of anticoagulants; Z87.891 Personal history of nicotine dependence; Z86.010 Personal history of colon polyps